=== PATIENT | female | born 1940 | race Caucasian/White ===

== ENCOUNTER → 2016-05-21 | Outpatient (CLI) | payer OTHER ==
[~2016-05-21] MED LIST: ADVIN10/60 INH; ALBUAER2 INH; ASPCH81; CARI350T28 PO; CLR10 PO; DILT-117 PO; DRV100 PO; DYZ PO; MULT-506 PO; [UNRECOGNIZED DRUG - OTHER] PO
[2016-05-21 14:38] LABS: ALT/SGPT 63 U/L (12-78); BLOOD UREA NITROGEN 17 mg/dl (7-18); BUN/CREATININE RATIO 15.1 (10-20); CALCIUM 8.7 mg/dl (8.5-10.1); CARBON DIOXIDE 27 mmol/L (21-32); CHLORIDE 107 mmol/L (98-107); GLUCOSE 147 mg/dl (70-99); SODIUM 144 mmol/L (136-145)
[2016-05-21 14:41] LABS: CHOLESTEROL 188 mg/dl (0-200); CHOLESTEROL/HDL RATIO 3.5; HDL CHOLESTEROL 54 mg/dl; LDL CHOLESTEROL CALCULATED 111 mg/dl; TRIGLYCERIDES 116 mg/dl (0-150); VERY LOW DENSITY LIPOPROT CALC 23 mg/dl
== END | disposition home or self-care (01) ==
LOC: C.LABMFLN 09:05
PROVIDERS: ATTEND Family Medicine
DX: Z13.220 Encounter for screening for lipoid disorders (principal); I10 Essential (primary) hypertension

== ENCOUNTER → 2016-12-24 | Outpatient (CLI) | payer OTHER | END | disposition home or self-care (01) | LOC: C.LABMFLN 10:47 | PROVIDERS: ATTEND Family Medicine | DX: L02.429 Furuncle of limb, unspecified (principal) ==

== ENCOUNTER → 2017-05-15 | Outpatient (CLI) | payer OTHER ==
[2017-05-15 18:22] LABS: ALT/SGPT 42 U/L (12-78); BLOOD UREA NITROGEN 17 mg/dl (7-18); CARBON DIOXIDE 33 mmol/L (21-32); CHOLESTEROL 163 mg/dl (0-200); CREATININE 1.02 mg/dl (0.60-1.20); GLUCOSE 117 mg/dl (70-99); SODIUM 140 mmol/L (136-145)
[2017-05-15 18:32] LABS: LDL CHOLESTEROL (DIRECT) 98 mg/dl
[2017-05-16 07:51] LABS: HEMOGLOBIN A1C 6.1 % (4.5-5.6)
== END | disposition home or self-care (01) ==
LOC: C.LABMFLN 11:59
PROVIDERS: ATTEND Family Medicine
DX: E11.9 Type 2 diabetes mellitus without complications (principal)

== ENCOUNTER → 2017-06-29 | Outpatient (CLI) | payer OTHER ==
[2017-06-29 22:45] LABS: INFLUENZA A PCR POS for Influ A (NEG); INFLUENZA B PCR Neg for Influ B (NEG)
== END | disposition home or self-care (01) ==
LOC: C.LABMFLN 10:22
PROVIDERS: ATTEND Physician Assistant
DX: R05 Cough (principal); R50.9 Fever, unspecified; J02.9 Acute pharyngitis, unspecified

== ENCOUNTER → 2018-01-04 | Outpatient (CLI) | payer OTHER ==
[2018-01-04 13:03] LABS: ALT/SGPT 43 U/L (12-78); BLOOD UREA NITROGEN 21 mg/dl (7-18); CALCIUM 8.8 mg/dl (8.5-10.1); CARBON DIOXIDE 31 mmol/L (21-32); CHOLESTEROL 167 mg/dl (0-200); CREATININE 1.18 mg/dl (0.60-1.20); GLUCOSE 123 mg/dl (70-99); LDL CHOLESTEROL (DIRECT) 107 mg/dl; SODIUM 140 mmol/L (136-145); URIC ACID 3.8 mg/dl (2.6-7.2)
[2018-01-04 13:17] LABS: HEMOGLOBIN A1C 6.1 % (4.5-5.6)
== END | disposition home or self-care (01) ==
LOC: C.LABMFLN 08:46
PROVIDERS: ATTEND Family Medicine
DX: M10.9 Gout, unspecified (principal); I10 Essential (primary) hypertension; E11.9 Type 2 diabetes mellitus without complications; E78.00 Pure hypercholesterolemia, unspecified

== ENCOUNTER 2020-04-04 15:41 | Inpatient (IN) ==
[2020-04-04] MEDS ORDERED: DEXAMETHASONE SOD INJ 10 MG/ML VIAL IV ONE (16:24)
[2020-04-04] MEDS ORDERED: SODIUM CHLORIDE 0.9% 1000ML 1,000 ML IV SCH (16:30)
[2020-04-04 17:17] LABS: Basophils # (auto) 0.01 K/uL (0-0.2); Basophils % (auto) 0.2 %; Eosinophils # (auto) 0.03 K/uL (0-0.5); Eosinophils % (auto) 0.5 %; Hematocrit (blood only) 42.1 % (37-47); Hemoglobin 13.7 g/dL (12.0-16.0); Immature Granulocytes # (auto) 0.03 K/uL (0.00-0.02); Immature Granulocytes % (auto) 0.5 %; Lymphocytes # (auto) 1.11 K/uL (1.2-3.4); Lymphocytes % (auto) 16.7 %; Mean Corpuscular Hemoglobin 31.9 pg (25-34); Mean Corpuscular Hgb Conc 32.5 g/dL (32-36); Mean Corpuscular Volume 97.9 fL (80-100); Mean Platelet Volume 10.6 fL (7.4-10.4); Monocytes # (auto) 0.68 K/uL (0.11-0.59); Monocytes % (auto) 10.2 %; Neutrophils # (auto) 4.78 K/uL (1.4-6.5); Neutrophils % (auto) 71.9 %; Platelet Count 180 K/uL (130-400); RDW Coefficient of Variation 13.4 % (11.5-14.5); RDW Standard Deviation 48.1 fL (36.4-46.3); White Blood Count 6.64 K/uL (4.8-10.8)
[2020-04-04 17:29] LABS: Partial Thromboplastin Ratio 1.1; Partial Thromboplastin Time 29.5 Seconds (21.0-31.0); Prothrombin Time 10.8 Seconds (9.0-12.0)
[2020-04-04 17:32] LABS: D Dimer 1050 ug/L FEU (0-500)
[2020-04-04 17:37] LABS: Alanine Aminotransferase 33 U/L (12-78); Albumin Level 2.9 gm/dl (3.4-5.0); Aspartate Aminotransferase 39 U/L (15-37); BUN Creatinine Ratio 16.8 (10-20); Blood Urea Nitrogen 17 mg/dl (7-18); Calcium 8.5 mg/dl (8.5-10.1); Carbon Dioxide 31 mmol/L (21-32); Chloride 104 mmol/L (98-107); Creatinine Clr Calc Pharmacy 54.8 ml/min; Est GFR (African American) 61.3; Est GFR (Non-African American) 52.9; Glucose 96 mg/dl (70-99); Magnesium 2.1 mg/dl (1.8-2.4); Potassium 3.7 mmol/L (3.5-5.1); Sodium 138 mmol/L (136-145)
[2020-04-04 17:42] LABS: Albumin Globulin Ratio 0.7 (0.9-2); Alkaline Phosphatase 68 U/L (45-117); Bilirubin,Total 0.9 mg/dl (0.2-1); C Reactive Protein 9.53 mg/dl (0-0.29); Ferritin 393.2 ng/ml (8-388); Globulin 4.2 gm/dl (2.5-4.0); Total Protein 7.1 gm/dl (6.4-8.2); Troponin I < 0.015 ng/ml (0-0.045)
--- NOTE | 2020-04-04 18:13 | Emergency Department Note ---
History of Present Illness General Chief complaint: Shortness of Breath/Dyspnea Stated complaint: COV + 03/27, HYPOXIA Source: patient and RN notes reviewed Mode of arrival: ambulatory Limitations: no limitations History of Present Illness Provider complaint: Covid positive, shortness of breath This patient is a 79-year-old female who presents to emergency department with complaints of shortness of breath, cough, noting that she was Covid positive on 03/27. Patient states she has not had any difficulty with significant fevers however she has had a dry and hacking cough. She has been nauseated but tolerating some chicken noodle soup over the last several days. She does not normally wear oxygen but admits that she does have a diagnosis of COPD. She is also diabetic. Patient does have a Ventolin inhaler that she has been using every 4 hours. She has been tolerating fluids but not as many as usual. She feels particularly short of breath with exertion. Patient believes she contracted Covid from a friend. Home Medications Medication Instructions Recorded Confirmed Type aspirin 81 mg tablet,delayed 81 mg PO DAILY 02/10/19 04/04/20 History release cetirizine 10 mg tablet 10 mg PO DAILY tab 02/10/19 04/04/20 History albuterol sulfate 90 mcg/actuation 2 puffs INH Q4H PRN #18 gm 08/03/19 04/04/20 Rx aerosol inhaler candesartan 8 mg tablet 8 mg PO DAILY #90 tab 11/08/19 04/04/20 Rx allopurinol 300 mg tablet 300 mg PO DAILY #90 tab 11/24/19 04/04/20 Rx montelukast 10 mg tablet 10 mg PO QPM #90 tab 11/24/19 04/04/20 Rx furosemide 20 mg tablet 20 mg PO QAM #90 tab 12/14/19 04/04/20 Rx metformin 500 mg tablet,extended 500 mg PO DAILY #90 tab 02/09/20 04/04/20 Rx release 24 hr diltiazem HCl 300 mg PO DAILY 04/04/20 04/04/20 History fluticasone propion-salmeterol 1 ea INHALATION BID 04/04/20 04/04/20 History [Wixela Inhub] potassium chloride 10 meq PO DAILY 04/04/20 04/04/20 History Allergies Allergy/AdvReac Type Severity Reaction Status Date / Time Penicillins Allergy Intermediate HIVES Verified 04/04/20 16:14 hydrochlorothiazide AdvReac Unknown Verified 04/04/20 16:14 lisinopril AdvReac Unknown Verified 04/04/20 16:14 Past Med/Surg History Medical History Anal fistula Asthma Benign essential hypertension Common migraine without aura Diabetes mellitus Disc degeneration, lumbar Hallux valgus with bunions Hypercholesterolemia Surgical History History of appendectomy History of cataract surgery History of cholecystectomy History of colonoscopy History of hysterectomy History of oophorectomy History of rectal surgery closure of anal fistula with rectal advancement flap History of shoulder surgery History of tubal ligation Family History Mother Cancer Myocardial infarction Congestive heart failure Father Persistent sinus bradycardia Septicemia Sick sinus syndrome Sister Hypothyroidism Social History Smoking Status: Never smoker Hx Alcohol Use: No Hx Substance Use: No Preferred Language: German Communication Ability: Effective Commercial Development Manager Required: No Beliefs That Will Affect Care: None Current Living Situation: Alone current occupational status: retired Feels Safe at Home: Yes caffeine: No Dental Care, Regularly: No Physical Activity Frequency: Does not Exercise Seatbelt Use: always Assistive Devices: Oxygen - Continuous Review of Systems See HPI for pertinent positives & negatives. and A total of 10 systems reviewed and were otherwise negative Physical Exam Vital Signs Vital Signs - 24 hr 04/04/20 15:44 04/04/20 15:58 04/04/20 16:12 Pulse Rate 80 72 Pulse Rate from SpO2 Sensor 71 Respiratory Rate 24 24 Respiratory Effort / Characteristics Non-Labored Spontaneous Short of Breath Respiratory Depth Normal Normal Respiratory Pattern Regular Blood Pressure 128/64 144/67 H Blood Pressure Mean 85 94 Pulse Oximetry 84 L 95 92 Oxygen Delivery Method Room Air Nasal Cannula Nasal Cannula Oxygen Flow Rate 2 2 Sepsis Recent Fever Within 48 Hours No Sepsis New/Unexplained Change in Mental Status N/A Sepsis Action Taken by Nursing No Action Required 04/04/20 16:27 04/04/20 16:30 04/04/20 16:32 Pulse Rate 75 71 Pulse Rate from SpO2 Sensor 74 71 Respiratory Rate 22 30 H Respiratory Effort / Characteristics Respiratory Depth Respiratory Pattern Blood Pressure Blood Pressure Mean Pulse Oximetry 92 91 94 Oxygen Delivery Method Nasal Cannula Nasal Cannula Nasal Cannula Oxygen Flow Rate 2 2 2 Sepsis Recent Fever Within 48 Hours Sepsis New/Unexplained Change in Mental Status Sepsis Action Taken by Nursing 04/04/20 17:00 04/04/20 17:03 Pulse Rate 72 71 Pulse Rate from SpO2 Sensor 72 71 Respiratory Rate 20 31 H Respiratory Effort / Characteristics Respiratory Depth Respiratory Pattern Blood Pressure 109/46 L Blood Pressure Mean 70 Pulse Oximetry 94 95 Oxygen Delivery Method Nasal Cannula Nasal Cannula Oxygen Flow Rate 2 2 Sepsis Recent Fever Within 48 Hours Sepsis New/Unexplained Change in Mental Status Sepsis Action Taken by Nursing Vital signs reviewed. General: Generally well-appearing 79-year-old female, in no significant distress. HEENT: No scleral icterus, PERRLA, neck supple. Atraumatic. Cardiovascular: Regular rate and rhythm, no extra sounds. On nasal cannula oxygen. Pulmonary: Coarse breath sounds bilaterally, normal work of breathing. On nasal cannula oxygen, dry cough Abdomen: Soft, obese, nontender, nondistended, positive bowel sounds. Musculoskeletal: Atraumatic, no peripheral edema. Neurologic: Patient awake alert and oriented x 3 Skin: Warm, dry, no rash Course Administered Medications Acetaminophen (Acetaminophen 325 Mg Tab) 650 mg PO Q4H PRN PRN Reason: Pain or Fever Stop: 05/05/20 00:25 Last Admin: 04/05/20 12:36 Dose: 650 mg Documented by: [id number] Allopurinol (Allopurinol 300 Mg Tab) 300 mg PO DAILY [facility] Stop: 05/05/20 08:59 Last Admin: 04/05/20 08:27 Dose: 300 mg Documented by: [id number] Aspirin (Aspirin 81 Mg Ectab) 81 mg PO DAILY [facility] Stop: 05/05/20 08:59 Last Admin: 04/05/20 08:27 Dose: 81 mg Documented by: [id number] Cetirizine HCl (Cetirizine Hcl 10 Mg Tablet) 10 mg PO DAILY [facility] Stop: 05/05/20 08:59 Last Admin: 04/05/20 08:27 Dose: 10 mg Documented by: [id number] Diltiazem HCl (Diltiazem Hcl 300 Mg Capcr) 300 mg PO DAILY [facility] Stop: 05/05/20 08:59 Last Admin: 04/05/20 08:27 Dose: 300 mg Documented by: [id number] Enoxaparin Sodium (Enoxaparin Inj 60 Mg/0.6 Ml Syr) 60 mg SQ Q24H [facility] Stop: 05/05/20 08:59 Last Admin: 04/05/20 08:28 Dose: 60 mg Documented by: [id number] Fluticasone/Vilanterol (Fluticasone/Vilanterol 200/25mcg 14 Puffs/Inhaler) 1 puffs INH DAILY [facility] Stop: 05/05/20 08:59 Last Admin: 04/05/20 08:26 Dose: 1 puffs Documented by: [id number] Guaifenesin (Guaifenesin 600 Mg Tabcr) 600 mg PO Q12 [facility] Stop: 05/05/20 00:25 Last Admin: 04/05/20 20:00 Dose: 600 mg Documented by: [id number] Admin: 04/05/20 08:28 Dose: 600 mg Documented by: [id number] Admin: 04/05/20 01:26 Dose: 600 mg Documented by: [id number] Dexamethasone 6 mg/ Syringe 1.5 mls @ 1 mls/min IV Q12H [facility] Stop: 05/05/20 03:59 Last Admin: 04/05/20 16:02 Dose: 1 mls/min Documented by: [id number] Admin: 04/05/20 04:35 Dose: 1 mls/min Documented by: [id number] Ceftriaxone Sodium 2,000 mg/ (Dextrose) 70 mls @ 100 mls/hr IV Q24H [facility]; Protocol Stop: 04/12/20 00:59 Last Infusion: 04/05/20 02:26 Dose: 0 mls/hr Documented by: [id number] Admin: 04/05/20 01:31 Dose: 100 mls/hr Documented by: [id number] Azithromycin 500 mg/ Dextrose 255 mls @ 125 mls/hr IV Q24H [facility] Stop: 04/12/20 00:59 Last Infusion: 04/05/20 04:35 Dose: 0 mls/hr Documented by: [id number] Admin: 04/05/20 02:26 Dose: 125 mls/hr Documented by: [id number] Insulin Aspart (Insulin Aspart 100 Units/Ml 3 Ml Pen) 0 units SC ACHS [facility] Stop: 05/05/20 00:25 Last Admin: 04/05/20 20:10 Dose: 2 units Documented by: [id number] Cosigned by: [id number] Admin: 04/05/20 17:41 Dose: 4 units Documented by: [id number] Cosigned by: [id number] Admin: 04/05/20 12:26 Dose: 6 units Documented by: [id number] Cosigned by: [id number] Admin: 04/05/20 10:02 Dose: 5 units Documented by: [id number] Cosigned by: [id number] Admin: 04/05/20 01:54 Dose: 4 units Documented by: [id number] Cosigned by: [id number] Montelukast Sodium (Montelukast Sodium 10 Mg Tablet) 10 mg PO QPM [facility] Stop: 05/05/20 00:25 Last Admin: 04/05/20 20:01 Dose: 10 mg Documented by: [id number] Admin: 04/05/20 01:28 Dose: 10 mg Documented by: [id number] Discontinued Medications Dexamethasone (Dexamethasone Sod Inj 10 Mg/Ml Vial) 10 mg IV NOW ONE Stop: 04/04/20 16:25 Last Admin: 04/04/20 17:02 Dose: 10 mg Documented by: [id number] Sodium Chloride (Nss 1000ml) 1,000 mls @ 999 mls/hr IV .Q1H1M OSK[facility] Stop: 04/04/20 17:30 Last Infusion: 04/04/20 18:03 Dose: 0 mls/hr Documented by: [id number] Admin: 04/04/20 17:02 Dose: 999 mls/hr Documented by: [id number] Miscellaneous (Candesartan~Order Awaiting Action) 1 ea N/A QS OSK[facility] Stop: 05/05/20 07:59 Last Admin: 04/05/20 08:25 Dose: Not Given Documented by: [id number] Medical Decision Making Differential Diagnosis Reactive airway disease, Covid, pneumonia, pneumothorax, COPD, CHF, infections, cardiac ischemia, pulmonary embolism, musculoskeletal, gastrointestinal, as well as other pathologies. Medical Records Attestation: I reviewed the patient's medical records. Home Medications Current Medication List: was personally reviewed by me Laboratory Data Attestation: I reviewed the patient's lab results. Result diagrams: 04/04/20 16:59 04/04/20 16:59 Lab Results 04/04/20 04/04/20 04/04/20 Range/Units 16:15 16:15 16:59 WBC (4.8-10.8) K/uL RBC (4.2-5.4) M/uL Hgb (12.0-16.0) g/dL Hct (37-47) % MCV (80-100) fL MCH (25-34) pg MCHC (32-36) g/dL RDW Std Deviation (36.4-46.3) fL RDW Coeff of Gonzalez (11.5-14.5) % Plt Count (130-400) K/uL MPV (7.4-10.4) fL Immature Gran % (Auto) % Neut % (Auto) % Lymph % (Auto) % Mcleod % (Auto) % Eos % (Auto) % Baso % (Auto) % Neut # (Auto) (1.4-6.5) K/uL Lymph # (Auto) (1.2-3.4) K/uL Mcleod # (Auto) (0.11-0.59) K/uL Eos # (Auto) (0-0.5) K/uL Baso # (Auto) (0-0.2) K/uL Immature Gran # (Auto) (0.00-0.02) K/uL ESR (0-21) mm/hr PT (9.0-12.0) Seconds INR (0.9-1.1) APTT (21.0-31.0) Seconds PTT Ratio D-Dimer (0-500) ug/L FEU Sodium (136-145) mmol/L Potassium (3.5-5.1) mmol/L Chloride (98-107) mmol/L Carbon Dioxide (21-32) mmol/L Anion Gap (3-11) BUN (7-18) mg/dl Creatinine (0.6-1.2) mg/dl Est Cr Clr Drug Dosing ml/min Est GFR ( Amer) Est GFR (Non-Af Amer) BUN/Creatinine Ratio (10-20) Glucose (70-99) mg/dl Calcium (8.5-10.1) mg/dl Magnesium (1.8-2.4) mg/dl Ferritin (8-388) ng/ml Total Bilirubin (0.2-1) mg/dl AST (15-37) U/L ALT (12-78) U/L Alkaline Phosphatase (45-117) U/L Lactate Dehydrogenase (84-246) U/L Troponin I (0-0.045) ng/ml C-Reactive Protein (0-0.29) mg/dl Total Protein (6.4-8.2) gm/dl Albumin (3.4-5.0) gm/dl Globulin (2.5-4.0) gm/dl Albumin/Globulin Ratio (0.9-2) COVID-19 Eval Order Covid19 [facility]Now [facility] SARS-CoV-2, RNA, NAAT POSITIVE A* (NEGATIVE) SARS-CoV-2 Ag (Rapid) (Negative) Blood Type A Positive Antibody Screen NEGATIVE 04/04/20 04/04/20 04/04/20 Range/Units 16:59 16:59 16:59 WBC 6.64 (4.8-10.8) K/uL RBC 4.30 (4.2-5.4) M/uL Hgb 13.7 (12.0-16.0) g/dL Hct 42.1 (37-47) % MCV 97.9 (80-100) fL MCH 31.9 (25-34) pg MCHC 32.5 (32-36) g/dL RDW Std Deviation 48.1 H (36.4-46.3) fL RDW Coeff of Gonzalez 13.4 (11.5-14.5) % Plt Count 180 (130-400) K/uL MPV 10.6 H (7.4-10.4) fL Immature Gran % (Auto) 0.5 % Neut % (Auto) 71.9 % Lymph % (Auto) 16.7 % Mcleod % (Auto) 10.2 % Eos % (Auto) 0.5 % Baso % (Auto) 0.2 % Neut # (Auto) 4.78 (1.4-6.5) K/uL Lymph # (Auto) 1.11 L (1.2-3.4) K/uL Mcleod # (Auto) 0.68 H (0.11-0.59) K/uL Eos # (Auto) 0.03 (0-0.5) K/uL Baso # (Auto) 0.01 (0-0.2) K/uL Immature Gran # (Auto) 0.03 H (0.00-0.02) K/uL ESR 43 H (0-21) mm/hr PT 10.8 (9.0-12.0) Seconds INR 1.0 (0.9-1.1) APTT 29.5 (21.0-31.0) Seconds PTT Ratio 1.1 D-Dimer 1050 H* (0-500) ug/L FEU Sodium (136-145) mmol/L Potassium (3.5-5.1) mmol/L Chloride (98-107) mmol/L Carbon Dioxide (21-32) mmol/L Anion Gap (3-11) BUN (7-18) mg/dl Creatinine (0.6-1.2) mg/dl Est Cr Clr Drug Dosing ml/min Est GFR ( Amer) Est GFR (Non-Af Amer) BUN/Creatinine Ratio (10-20) Glucose (70-99) mg/dl Calcium (8.5-10.1) mg/dl Magnesium (1.8-2.4) mg/dl Ferritin (8-388) ng/ml Total Bilirubin (0.2-1) mg/dl AST (15-37) U/L ALT (12-78) U/L Alkaline Phosphatase (45-117) U/L Lactate Dehydrogenase (84-246) U/L Troponin I (0-0.045) ng/ml C-Reactive Protein (0-0.29) mg/dl Total Protein (6.4-8.2) gm/dl Albumin (3.4-5.0) gm/dl Globulin (2.5-4.0) gm/dl Albumin/Globulin Ratio (0.9-2) COVID-19 Eval Order SARS-CoV-2, RNA, NAAT (NEGATIVE) SARS-CoV-2 Ag (Rapid) (Negative) Blood Type Antibody Screen 04/04/20 04/04/20 04/04/20 Range/Units 16:59 16:59 17:11 WBC (4.8-10.8) K/uL RBC (4.2-5.4) M/uL Hgb (12.0-16.0) g/dL Hct (37-47) % MCV (80-100) fL MCH (25-34) pg MCHC (32-36) g/dL RDW Std Deviation (36.4-46.3) fL RDW Coeff of Gonzalez (11.5-14.5) % Plt Count (130-400) K/uL MPV (7.4-10.4) fL Immature Gran % (Auto) % Neut % (Auto) % Lymph % (Auto) % Mcleod % (Auto) % Eos % (Auto) % Baso % (Auto) % Neut # (Auto) (1.4-6.5) K/uL Lymph # (Auto) (1.2-3.4) K/uL Mcleod # (Auto) (0.11-0.59) K/uL Eos # (Auto) (0-0.5) K/uL Baso # (Auto) (0-0.2) K/uL Immature Gran # (Auto) (0.00-0.02) K/uL ESR (0-21) mm/hr PT (9.0-12.0) Seconds INR (0.9-1.1) APTT (21.0-31.0) Seconds PTT Ratio D-Dimer (0-500) ug/L FEU Sodium 138 (136-145) mmol/L Potassium 3.7 (3.5-5.1) mmol/L Chloride 104 (98-107) mmol/L Carbon Dioxide 31 (21-32) mmol/L Anion Gap 3.0 (3-11) BUN 17 (7-18) mg/dl Creatinine 1.01 (0.6-1.2) mg/dl Est Cr Clr Drug Dosing 54.8 ml/min Est GFR ( Amer) 61.3 Est GFR (Non-Af Amer) 52.9 BUN/Creatinine Ratio 16.8 (10-20) Glucose 96 (70-99) mg/dl Calcium 8.5 (8.5-10.1) mg/dl Magnesium 2.1 (1.8-2.4) mg/dl Ferritin 393.2 H (8-388) ng/ml Total Bilirubin 0.9 (0.2-1) mg/dl AST 39 H (15-37) U/L ALT 33 (12-78) U/L Alkaline Phosphatase 68 (45-117) U/L Lactate Dehydrogenase 321 H (84-246) U/L Troponin I < 0.015 (0-0.045) ng/ml C-Reactive Protein 9.53 H (0-0.29) mg/dl Total Protein 7.1 (6.4-8.2) gm/dl Albumin 2.9 L (3.4-5.0) gm/dl Globulin 4.2 H (2.5-4.0) gm/dl Albumin/Globulin Ratio 0.7 L (0.9-2) COVID-19 Eval Order SARS-CoV-2, RNA, NAAT (NEGATIVE) SARS-CoV-2 Ag (Rapid) Negative (Negative) Blood Type Antibody Screen Imaging Data Radiologist's Impression: SINGLE VIEW CHEST CLINICAL HISTORY: Dyspnea. FINDINGS: An AP, portable, upright chest radiograph is obtained. No prior studies are available for comparison at the time of dictation. The heart is enlarged noting atherosclerotic calcification of the thoracic aorta. There is pulmonary basilar congestion. Hazy airspace opacities are seen bilaterally. There is elevation of the right hemidiaphragm with associated atelectasis at the right lung base. Trace pleural effusions are suspected. No pneumothorax is seen. The skeletal structures are osteopenic. The bony thorax is grossly intact. A right shoulder arthroplasty is in place. IMPRESSION: 1. Cardiomegaly with evidence of congestive failure. 2. Hazy bilateral interstitial opacities likely represent pulmonary edema. Nataliia elate clinically for evidence of a superimposed infectious/inflammatory pneumonitis. 3. Suspect trace pleural effusions. ACT 112: Negative or not required by law. Electronically signed by: Isaisa Hobson M.D. 04/04/2020 6:49 PM Dictated: 04/04/201847Transcribed: 04/04/201847 ECG Data Attestation: I personally reviewed and interpreted this ECG as follows: Indication: + SOB/dyspnea Rate (beats per minute): 74 Rhythm: + normal sinus and + other (Poor quality baseline for interpretation) ECG Intervals/blocks: + Prolonged QT ECG ST segments: + Nonspecific ST abnormalities and + repolarization abnormalities (T wave flattening anteriorly) ECG Findings: no PACs and no PVCs Blood Pressure Blood Pressure Findings: Low blood pressure Blood Pressure Disposition: further management by hospitalist ERICKSON Mead This patient was evaluated and appeared to be in no significant distress. IV access was obtained and laboratory work was drawn. An order for cardiac monitoring was placed and the patient is noted to be in a normal sinus rhythm at 72 bpm. The patient was noted to be hypoxic at triage and was requiring supplemental oxygen at 2 L nasal cannula. She was given 6 mg of IV dexamethasone. Chest x-ray reveals hazy bilateral interstitial infiltrates which is likely more consistent with the patient's diagnosis of Covid as opposed to pulmonary edema. Patient's D-dimer is elevated, sed rate and CRP are elevated. Patient's case was discussed with the hospitalist service who will evaluate the patient for admission and further management. Patient is aware of the plan and agrees. Impression & Plan Hypoxia, Pneumonia due to COVID-19 virus Discharge Plan Visit Data Chief Complaint: Shortness of Breath/Dyspnea Stated Complaint: COV + 03/27, HYPOXIA ED Provider: Re Anderson Discharge Problem: Hypoxia, Pneumonia due to COVID-19 virus Patient Disposition: Admitted As Inpatient Discharge Instructions Interventions: ED Discharge Assessment Last Done: 04/04/20 23:13
--- NOTE | 2020-04-04 18:42 | History & Physical Report ---
Date of Service April 04, 2020 Assessment & Plan (1) Pneumonia due to COVID-19 virus: Pneumonia due to COVID-19 virus/likely associated secondary bacterial superinfection/hypoxia/history of asthma- Admit to monitored bed Decadron 6 mg IV every 12 hours Ceftriaxone 2 g IV daily. Azithromycin 500 mg IV daily Ventolin HFA 2 puffs 4 times daily, and every 2 hours as needed Guaifenesin extended release 600 mg p.o. twice daily Nasal cannula oxygen, titrate to keep pulse ox 94 to 95% Present on Admission?: Yes (2) Hypoxia: See above Present on Admission?: Yes (3) Asthma: See above Present on Admission?: Yes (4) Benign essential hypertension: Continue aspirin, candesartan, diltiazem. Hold furosemide and potassium chloride Present on Admission?: Yes (5) Diabetes mellitus: Hold metformin. Placed in Accu-Cheks before meals and at bedtime with NovoLog coverage per scale. Follow glucose closely while on Decadron Present on Admission?: Yes History of Present Illness Chief Complaint: The patient presents to the emergency department with a diagnosis of COVID-19 on 03/27, with progressive shortness of breath, cough and dyspnea on exertion. Primary Care Provider: Filiberto Joseph MD The patient is a 79-year-old female with a past medical history of asthma, benign essential hypertension, common migraine without aura, diabetes mellitus, lumbar disc degeneration, hallux valgus with bunions and hypercholesterolemia. She was diagnosed with COVID-19 on 03/27, now was confirmed in the ED tonight. She reports that her symptoms had been improving until this morning, when she awoke with worsening cough and shortness of breath. Allergies Allergy/AdvReac Type Severity Reaction Status Date / Time Penicillins Allergy Intermediate HIVES Verified 04/04/20 16:14 hydrochlorothiazide AdvReac Unknown Verified 04/04/20 16:14 lisinopril AdvReac Unknown Verified 04/04/20 16:14 Home Medications Medication Instructions Recorded Confirmed Type aspirin 81 mg tablet,delayed 81 mg PO DAILY 02/10/19 04/04/20 History release cetirizine 10 mg tablet 10 mg PO DAILY tab 02/10/19 04/04/20 History albuterol sulfate 90 mcg/actuation 2 puffs INH Q4H PRN #18 gm 08/03/19 04/04/20 Rx aerosol inhaler candesartan 8 mg tablet 8 mg PO DAILY #90 tab 11/08/19 04/04/20 Rx allopurinol 300 mg tablet 300 mg PO DAILY #90 tab 11/24/19 04/04/20 Rx montelukast 10 mg tablet 10 mg PO QPM #90 tab 11/24/19 04/04/20 Rx furosemide 20 mg tablet 20 mg PO QAM #90 tab 12/14/19 04/04/20 Rx metformin 500 mg tablet,extended 500 mg PO DAILY #90 tab 02/09/20 04/04/20 Rx release 24 hr diltiazem HCl 300 mg PO DAILY 04/04/20 04/04/20 History fluticasone propion-salmeterol 1 ea INHALATION BID 04/04/20 04/04/20 History [Wixela Inhub] potassium chloride 10 meq PO DAILY 04/04/20 04/04/20 History Past Med/Surg History Medical History Anal fistula Asthma Benign essential hypertension Common migraine without aura Diabetes mellitus Disc degeneration, lumbar Hallux valgus with bunions Hypercholesterolemia Surgical History History of appendectomy History of cataract surgery History of cholecystectomy History of colonoscopy History of hysterectomy History of oophorectomy History of rectal surgery closure of anal fistula with rectal advancement flap History of shoulder surgery History of tubal ligation Family History Mother Cancer Myocardial infarction Congestive heart failure Father Persistent sinus bradycardia Septicemia Sick sinus syndrome Sister Hypothyroidism Social History Smoking Status: Never smoker Hx Alcohol Use: No Hx Substance Use: No Current Living Situation: Alone current occupational status: retired Feels Safe at Home: Yes caffeine: No Dental Care, Regularly: No Physical Activity Frequency: Does not Exercise Seatbelt Use: always Review of Systems Review of Systems: The patient denies chest pain, palpitations, lower extremity swelling, sore throat, fevers, chills, sweats, vomiting, diarrhea , constipation, abdominal pain, pelvic pain, blood in urine or stool, dysuria, urinary frequency or urgency, lightheadedness, dizziness, headache, loss of consciousness, rash, abnormal bruising or bleeding, focal or generalized weakness, numbness or tingling in arms or legs, or night sweats. The review of systems is otherwise negative other than for that already noted ab ove, and at least 10 systems have been reviewed. Physical Exam Physical Exam: The patient is awake, alert and oriented 3, normocephalic and atraumatic, lying in bed and in no acute distress. HEENT--PERRL, EOMI, mucous membranes and oropharynx dry. Neck--supple. No JVD. No bruits. Thyroid normal, trachea midline, no adenopathy. Heart--normal S1 and S2. No murmurs, rubs or gallops. Lungs--coarse breath sounds with wheezes bilaterally. No respiratory distress, no accessory muscle use. Abdomen--normal bowel sounds and soft. Nontender. Nondistended. Morbidly obese Extremities--no cyanosis or clubbing. No edema. Dermatologic--normal skin turgor, normal color, no abnormal lymph nodes, no rash. Neurologic--cranial nerves II through XII grossly intact. Rheumatologic--normal range of motion. Psychiatric--normal affect. Results & Data Results & Data ([facility]) Vital Signs (Past 12 Hours) Vital Signs Pulse Resp BP Pulse Ox 04/04/20 17:03 71 31 H 109/46 L 95 04/04/20 17:00 72 20 94 04/04/20 16:32 94 04/04/20 16:30 71 30 H 91 04/04/20 16:27 75 22 92 04/04/20 16:12 72 24 144/67 H 92 04/04/20 15:58 95 04/04/20 15:44 80 24 128/64 84 L Laboratory Results Laboratory Results WBC 6.64 K/uL (4.8-10.8) 04/04/20 16:59 RBC 4.30 M/uL (4.2-5.4) 04/04/20 16:59 Hgb 13.7 g/dL (12.0-16.0) 04/04/20 16:59 Hct 42.1 % (37-47) 04/04/20 16:59 MCV 97.9 fL (80-100) 04/04/20 16:59 MCH 31.9 pg (25-34) 04/04/20 16:59 MCHC 32.5 g/dL (32-36) 04/04/20 16:59 RDW Std Deviation 48.1 fL (36.4-46.3) H 04/04/20 16:59 RDW Coeff of Gonzalez 13.4 % (11.5-14.5) 04/04/20 16:59 Plt Count 180 K/uL (130-400) 04/04/20 16:59 MPV 10.6 fL (7.4-10.4) H 04/04/20 16:59 Immature Gran % (Auto) 0.5 % 04/04/20 16:59 Neut % (Auto) 71.9 % 04/04/20 16:59 Lymph % (Auto) 16.7 % 04/04/20 16:59 [place] % (Auto) 10.2 % 04/04/20 16:59 Eos % (Auto) 0.5 % 04/04/20 16:59 Baso % (Auto) 0.2 % 04/04/20 16:59 Neut # (Auto) 4.78 K/uL (1.4-6.5) 04/04/20 16:59 Lymph # (Auto) 1.11 K/uL (1.2-3.4) L 04/04/20 16:59 [place] # (Auto) 0.68 K/uL (0.11-0.59) H 04/04/20 16:59 Eos # (Auto) 0.03 K/uL (0-0.5) 04/04/20 16:59 Baso # (Auto) 0.01 K/uL (0-0.2) 04/04/20 16:59 Immature Gran # (Auto) 0.03 K/uL (0.00-0.02) H 04/04/20 16:59 ESR 43 mm/hr (0-21) H 04/04/20 16:59 PT 10.8 Seconds (9.0-12.0) 04/04/20 16:59 INR 1.0 (0.9-1.1) 04/04/20 16:59 APTT 29.5 Seconds (21.0-31.0) 04/04/20 16:59 PTT Ratio 1.1 04/04/20 16:59 D-Dimer 1050 ug/L FEU (0-500) H* 04/04/20 16:59 Sodium 138 mmol/L (136-145) 04/04/20 16:59 Potassium 3.7 mmol/L (3.5-5.1) 04/04/20 16:59 Chloride 104 mmol/L (98-107) 04/04/20 16:59 Carbon Dioxide 31 mmol/L (21-32) 04/04/20 16:59 Anion Gap 3.0 (3-11) 04/04/20 16:59 BUN 17 mg/dl (7-18) 04/04/20 16:59 Creatinine 1.01 mg/dl (0.6-1.2) 04/04/20 16:59 Est Cr Clr Drug Dosing 54.8 ml/min 04/04/20 16:59 Est GFR ( Amer) 61.3 04/04/20 16:59 Est GFR (Non-Af Amer) 52.9 04/04/20 16:59 BUN/Creatinine Ratio 16.8 (-20) 04/04/20 16:59 Glucose 96 mg/dl (70-99) 04/04/20 16:59 Calcium 8.5 mg/dl (8.5-10.1) 04/04/20 16:59 Magnesium 2.1 mg/dl (1.8-2.4) 04/04/20 16:59 Ferritin 393.2 ng/ml (8-388) H 04/04/20 16:59 Total Bilirubin 0.9 mg/dl (0.2-1) 04/04/20 16:59 AST 39 U/L (15-37) H 04/04/20 16:59 ALT 33 U/L (12-78) 04/04/20 16:59 Alkaline Phosphatase 68 U/L (45-117) 04/04/20 16:59 Lactate Dehydrogenase 321 U/L (84-246) H 04/04/20 16:59 Troponin I < 0.015 ng/ml (0-0.045) 04/04/20 16:59 C-Reactive Protein 9.53 mg/dl (0-0.29) H 04/04/20 16:59 Total Protein 7.1 gm/dl (6.4-8.2) 04/04/20 16:59 Albumin 2.9 gm/dl (3.4-5.0) L 04/04/20 16:59 Globulin 4.2 gm/dl (2.5-4.0) H 04/04/20 16:59 Albumin/Globulin Ratio 0.7 (0.9-2) L 04/04/20 16:59 Urine Color Yellow 04/04/20 19:02 Urine Appearance Clear (Clear) 04/04/20 19:02 Urine pH 6.0 (4.5-7.5) 04/04/20 19:02 Ur Specific [place] 1.008 (1.000-1.030) 04/04/20 19:02 Urine Protein Negative (Negative) 04/04/20 19:02 Urine Glucose (UA) Negative (Negative) 04/04/20 19:02 Urine Ketones 1+ (Negative) H 04/04/20 19:02 Urine Blood Trace (Negative) H 04/04/20 19:02 Urine Nitrite Negative (Negative) 04/04/20 19:02 Urine Bilirubin Negative (Negative) 04/04/20 19:02 Urine Urobilinogen Negative (Negative) 04/04/20 19:02 Ur Leukocyte Esterase 1+ (Negative) H 04/04/20 19:02 Urine RBC 0-4 /hpf (0-4) 04/04/20 19:02 Urine WBC 0-5 /hpf (0-5) 04/04/20 19:02 Ur Epithelial Cells 20-30 /lpf (0-5) H 04/04/20 19:02 Urine Bacteria Negative (Negative) 04/04/20 19:02 COVID-19 Eval Order Cov[facility] 04/04/20 16:15 SARS-CoV-2, RNA, NAAT POSITIVE (NEGATIVE) A* 04/04/20 16:15 SARS-CoV-2 Ag (Rapid) Negative (Negative) 04/04/20 17:11 Blood Type A Positive 04/04/20 16:59 Antibody Screen NEGATIVE 04/04/20 16:59 Diagnostic Findings [facility], [phone] XRay Report Patient: KULWINDER LUNA Date: 04/04/20MR#: [id number]: [id number] SR 655Acct ID:[id number]: [facility] Zip: [place], [place] [address]Axq: 79Location: EDSex: FRoom/Bed:Att Phy:Diagnosis: COV + 03/27, HYPOXIAPri Phy: Filiberto Joseph, MDService Date: 04/04/20Fam Phy:Interpreting Phy: Isaias Hobson MDAdmit Phy: Ordering Phy: Re Anderson M.D. cc: ~ SINGLE VIEW CHEST CLINICAL HISTORY: Dyspnea. FINDINGS: An AP, portable, upright chest radiograph is obtained. No prior studies are available for comparison at the time of dictation. The heart is enlarged noting atherosclerotic calcification of the thoracic aorta. There is pulmonary basilar congestion. Hazy airspace opacities are seen bilaterally. There is elevation of the right hemidiaphragm with associated atelectasis at the right lung base. Trace pleural effusions are suspected. No pneumothorax is seen. The skeletal structures are osteopenic. The bony thorax is grossly intact. A right shoulder arthroplasty is in place. IMPRESSION: 1. Cardiomegaly with evidence of congestive failure. 2. Hazy bilateral interstitial opacities likely represent pulmonary edema. C orrelate clinically for evidence of a superimposed infectious/inflammatory pneumonitis. 3. Suspect trace pleural effusions. ACT 112: Negative or not required by law. Electronically signed by: Isaias Hobson M.D. 04/04/2020 6:49 PM Dictated: 04/04/201847Transcribed: 04/04/201847 Code Status & VTE Plan Code Status Full code VTE Prophylaxis Plan VTE Prophylaxis will be ordered: Yes PG Care Time/CCT Total # of Minutes Spent Total Time Spent with Patient: Total time spent is greater than 50% in coordination of care (as documented) at patient's floor/unit and/or counseling patient: Coding Level of Care Code 74280 Initial Inpt Care Lvl 3 Diagnoses Pneumonia due to COVID-19 virus U07.1; J12.89 Hypoxia R09.02 Asthma J45.909 Benign essential hypertension I10 Diabetes mellitus E11.9
--- NOTE | 2020-04-04 18:50 | XRay Report ---
SINGLE VIEW CHEST CLINICAL HISTORY: Dyspnea. FINDINGS: An AP, portable, upright chest radiograph is obtained. No prior studies are available for c omparison at the time of dictation. The heart is enlarged noting atherosclerotic calcification of th e thoracic aorta. There is pulmonary basilar congestion. Hazy airspace opacities are seen bilaterally . There is elevation of the right hemidiaphragm with associated atelectasis at the right lung base. T race pleural effusions are suspected. No pneumothorax is seen. The skeletal structures are osteopenic . The bony thorax is grossly intact. A right shoulder arthroplasty is in place. IMPRESSION: 1. Cardiomegaly with evidence of congestive failure. 2. Hazy bilateral interstitial opacities likely represent pulmonary edema. Correlate clinically for e vidence of a superimposed infectious/inflammatory pneumonitis. 3. Suspect trace pleural effusions. ACT 112: Negative or not required by law. Electronically signed by: Isaias Hobson M.D. 04/04/2020 6:49 PM
[2020-04-04 19:16] LABS: Appearance Urine Clear (Clear); Bilirubin Urine Negative (Negative); Blood Urine Trace (Negative); Color Urine Yellow; Glucose Urine UA Negative (Negative); Ketones Urine 1+ (Negative); Leukocyte Esterase Urine 1+ (Negative); Nitrite Urine Negative (Negative); Protein Urine Negative (Negative); Specific Gravity Urine 1.008 (1.000-1.030); Urobilinogen Urine Negative (Negative)
[2020-04-04 19:31] LABS: Epithelial Cell Urine 20-30 /lpf (0-5); RBC Urine 0-4 /hpf (0-4); WBC Urine 0-5 /hpf (0-5)
[2020-04-04 19:32] LABS: Bacteria Urine Negative (Negative)
[2020-04-05] MEDS ORDERED: ACETAMINOPHEN 325 MG TAB PO PRN (00:26)
[2020-04-05] MEDS ORDERED: GLUCOSE 10 TABS/TUBE PO PRN (00:26)
[2020-04-05] MEDS ORDERED: ALBUTEROL HFA 8 GM INHALER INH PRN (00:26)
[2020-04-05] MEDS ORDERED: MAGNESIUM HYDROXIDE SUSP 30 ML UDC PO PRN (00:26)
[2020-04-05] MEDS ORDERED: GLUCOSE 40% GEL 15 GM TUBE PO PRN (00:26)
[2020-04-05] MEDS ORDERED: GLUCAGON FOR INJ 1 MG VIAL SQ PRN (00:26)
[2020-04-05] MEDS ORDERED: CARBOHYDRATES FOR HYPOGLYCEMIA PO PRN (00:26)
[2020-04-05] MEDS ORDERED: ONDANSETRON INJ 2 MG/ML 2 ML VIAL IV PRN (00:26)
[2020-04-05] MEDS ORDERED: ALUMINUM/MAGNESIUM SUSP 30 ML UDC PO PRN (00:26)
[2020-04-05] MEDS ORDERED: DEXTROSE 50% 50 ML SYRINGE IV PRN (00:26)
[2020-04-05] MEDS: guaiFENesin 600 MG TABCR PO SCH ×3 (01:26→20:00)
[2020-04-05] MEDS: MONTELUKAST SODIUM 10 MG TABLET PO SCH ×2 (01:28→20:01)
[2020-04-05] MEDS: cefTRIAXone SODIUM 2,000 MG in DEXTROSE 5% 50 ML IV SCH ×2 (01:31→23:41)
[2020-04-05] MEDS: INSULIN ASPART 100 UNITS/ML 3 ML PEN SC SCH ×5 (01:54→20:10)
[2020-04-05] MEDS: AZITHROMYCIN 500 MG in DEXTROSE 5% 250 ML IV SCH (02:26)
[2020-04-05] MEDS: dexAMETHasone 6 MG in SYRINGE 0 ML IV SCH ×2 (04:35→16:02)
[2020-04-05] MEDS: FLUTICASONE/VILANTEROL 200/25MCG 14 PUFFS/INHALER INH SCH (08:26)
[2020-04-05] MEDS: allopurinoL 300 MG TAB PO SCH (08:27)
[2020-04-05] MEDS: dilTIAZem HCL 300 MG CAPCR PO SCH (08:27)
[2020-04-05] MEDS: ASPIRIN 81 MG ECTAB PO SCH (08:27)
[2020-04-05] MEDS: CETIRIZINE HCL 10 MG TABLET PO SCH (08:27)
[2020-04-05] MEDS: ENOXAPARIN INJ 60 MG/0.6 ML SYR SQ SCH (08:28)
[2020-04-05 09:44] LABS: Estimated Average Glucose 134 mg/dl; Hemoglobin A1C 6.3 % (4.5-5.6)
--- NOTE | 2020-04-05 15:13 | Electrocardiogram Report ---
Test Reason : Blood Pressure : / mmHG Vent. Rate : 074 BPM Atrial Rate : 074 BPM P-R Int : 190 ms QRS Dur : 090 ms QT Int : 440 ms P-R-T Axes : 041 030 068 degrees QTc Int : 489 ms Sinus rhythm with Premature atrial complexes with Aberrant conduction Prolonged QT Abnormal ECG When compared with ECG of 29-MAR-2007 15:11, Aberrant conduction is now Present QT has lengthened Confirmed by Agapito Yates ([id number]) on 04/05/2020 3:13:14 PM Referred By: REFERRED SELF Confirmed By:Agapito Yates
--- NOTE | 2020-04-05 15:21 | Electrocardiogram Report ---
Test Reason : Blood Pressure : / mmHG Vent. Rate : 072 BPM Atrial Rate : 072 BPM P-R Int : 186 ms QRS Dur : 088 ms QT Int : 404 ms P-R-T Axes : 044 018 032 degrees QTc Int : 442 ms Normal sinus rhythm Nonspecific T wave abnormality When compared with ECG of 04-APR-2020 16:50, Aberrant conduction is no longer Present QT has shortened Confirmed by Agapito Yates ([id number]) on 04/05/2020 3:20:55 PM Referred By: REFERRED SELF Confirmed By:Agapito Yates
--- NOTE | 2020-04-05 22:54 | Hospitalist Progress Note ---
Date of Service April 05, 2020 Assessment & Plan (1) Pneumonia due to COVID-19 virus: Pneumonia due to COVID-19 virus/likely associated secondary bacterial superinfection/hypoxia/history of asthma- Admit to monitored bed Decadron 6 mg IV every 12 hours Ceftriaxone 2 g IV daily. Azithromycin 500 mg IV daily Ventolin HFA 2 puffs 4 times daily, and every 2 hours as needed Guaifenesin extended release 600 mg p.o. twice daily Nasal cannula oxygen (2) Hypoxia: See above (3) Asthma: See above (4) Benign essential hypertension: Continue aspirin, candesartan, diltiazem. Hold furosemide and potassium chloride (5) Diabetes mellitus: Hold metformin. Placed in Accu-Cheks before meals and at bedtime with NovoLog coverage per scale. Follow glucose closely while on Decadron Admission and Anticipated Discharge Date Admission Date: April 04, 2020 Subjective Patient reports feeling better than when she first came in. She denies any nausea, vomiting, diarrhea. Review of Systems Review of Systems: All systems reviewed & are unremarkable except as noted in HPI & below Physical Exam Physical Exam: The patient is awake, alert and oriented 3, normocephalic and atraumatic, lying in bed and in no acute distress. HEENT--PERRL, EOMI, mucous membranes and oropharynx dry. Neck--supple. No JVD. No bruits. Thyroid normal, trachea midline, no adenopathy. Heart--normal S1 and S2. No murmurs, rubs or gallops. Lungs--coarse breath sounds with wheezes bilaterally. No respiratory distress, no accessory muscle use. Abdomen--normal bowel sounds and soft. Nontender. Nondistended. Morbidly obese Extremities--no cyanosis or clubbing. No edema. Dermatologic--normal skin turgor, normal color, no abnormal lymph nodes, no rash. Neurologic--cranial nerves II through XII grossly intact. Rheumatologic--normal range of motion. Psychiatric--normal affect. Results & Data Results & Data ([facility]) Vital Signs (Past 12 Hours) Vital Signs Temp Pulse Pulse Resp BP Pulse Ox 04/05/20 19:59 36.5 C 68 18 130/74 92 04/05/20 15:11 36.5 C 76 18 110/67 94 04/05/20 15:04 64 04/05/20 11:37 36.6 C 66 18 110/63 92 PG Care Time/CCT Total # of Minutes Spent Total Time Spent with Patient: Total time spent is greater than 50% in coordination of care (as documented) at patient's floor/unit and/or counseling patient: Coding Level of Care Code 44986 Subseq Hosp Care Lvl 3 Diagnoses Pneumonia due to COVID-19 virus U07.1; J12.89 Hypoxia R09.02 Asthma J45.909 Benign essential hypertension I10 Diabetes mellitus E11.9 Time Spent (min) 35
[2020-04-06] MEDS: AZITHROMYCIN 500 MG in DEXTROSE 5% 250 ML IV SCH (00:20)
[2020-04-06] MEDS ORDERED: Nursing to Pharmacy Communication SCH (01:45)
[2020-04-06] MEDS: dexAMETHasone 6 MG in SYRINGE 0 ML IV SCH ×2 (06:26→17:10)
[2020-04-06] MEDS: FLUTICASONE/VILANTEROL 200/25MCG 14 PUFFS/INHALER INH SCH (08:29)
[2020-04-06] MEDS: dilTIAZem HCL 300 MG CAPCR PO SCH (08:29)
[2020-04-06] MEDS: ENOXAPARIN INJ 60 MG/0.6 ML SYR SQ SCH (08:31)
[2020-04-06] MEDS: LOSARTAN POTASSIUM 50 MG TAB PO SCH (08:31)
[2020-04-06] MEDS: CETIRIZINE HCL 10 MG TABLET PO SCH (08:31)
[2020-04-06] MEDS: allopurinoL 300 MG TAB PO SCH (08:31)
[2020-04-06] MEDS: guaiFENesin 600 MG TABCR PO SCH ×2 (08:31→20:23)
[2020-04-06] MEDS: ASPIRIN 81 MG ECTAB PO SCH (08:31)
[2020-04-06] MEDS: INSULIN ASPART 100 UNITS/ML 3 ML PEN SC SCH ×4 (09:27→20:41)
--- NOTE | 2020-04-06 11:13 | XRay Report ---
XR chest 1V portable CLINICAL HISTORY: covid hypoxia COMPARISON STUDY: Chest radiograph April 04, 2020. FINDINGS: Elevation of the right hemidiaphragm is unchanged. Partial arthroplasty is noted. No pneumo thorax or pleural effusion is noted. Interstitial thickening has slightly improved. Bibasilar opaciti es persist. IMPRESSION: 1. Persistent bibasilar opacities. Left basilar opacity favors an infectious process. Right basilar o pacity may reflect atelectasis or an infectious process. 2. Slight improvement in interstitial thickening. 3. Stable marked elevation of the right hemidiaphragm. ACT 112: Negative or not required by law. Electronically signed by: Get Altman M.D. 04/06/2020 11:11 AM
[2020-04-06 14:28] LABS: Basophils # (auto) 0.01 K/uL (0-0.2); Basophils % (auto) 0.1 %; Hematocrit (blood only) 40.7 % (37-47); Hemoglobin 13.4 g/dL (12.0-16.0); Immature Granulocytes # (auto) 0.04 K/uL (0.00-0.02); Immature Granulocytes % (auto) 0.4 %; Lymphocytes # (auto) 0.87 K/uL (1.2-3.4); Lymphocytes % (auto) 9.5 %; Mean Corpuscular Hemoglobin 31.8 pg (25-34); Mean Corpuscular Hgb Conc 32.9 g/dL (32-36); Mean Corpuscular Volume 96.7 fL (80-100); Mean Platelet Volume 11.1 fL (7.4-10.4); Monocytes # (auto) 0.51 K/uL (0.11-0.59); Monocytes % (auto) 5.6 %; Neutrophils # (auto) 7.68 K/uL (1.4-6.5); Neutrophils % (auto) 84.4 %; Platelet Count 249 K/uL (130-400); RDW Standard Deviation 45.8 fL (36.4-46.3); Red Blood Count 4.21 M/uL (4.2-5.4); White Blood Count 9.11 K/uL (4.8-10.8)
[2020-04-06 15:23] LABS: BUN Creatinine Ratio 30.1 (10-20); Calcium 8.8 mg/dl (8.5-10.1); Creatinine Clr Calc Pharmacy 44.5 ml/min; Est GFR (African American) 47.8; Est GFR (Non-African American) 41.3; Ferritin 409.2 ng/ml (8-388); Potassium 4.3 mmol/L (3.5-5.1)
[2020-04-06] MEDS: MONTELUKAST SODIUM 10 MG TABLET PO SCH (20:24)
[2020-04-07] MEDS: cefTRIAXone SODIUM 2,000 MG in DEXTROSE 5% 50 ML IV SCH ×2 (00:52→20:39)
[2020-04-07] MEDS: AZITHROMYCIN 500 MG in DEXTROSE 5% 250 ML IV SCH (00:53)
[2020-04-07] MEDS: dexAMETHasone 6 MG in SYRINGE 0 ML IV SCH (06:28)
[2020-04-07] MEDS: FLUTICASONE/VILANTEROL 200/25MCG 14 PUFFS/INHALER INH SCH (07:43)
[2020-04-07] MEDS: ENOXAPARIN INJ 60 MG/0.6 ML SYR SQ SCH (07:43)
[2020-04-07] MEDS: dilTIAZem HCL 300 MG CAPCR PO SCH (07:44)
[2020-04-07] MEDS: LOSARTAN POTASSIUM 50 MG TAB PO SCH (07:44)
[2020-04-07] MEDS: allopurinoL 300 MG TAB PO SCH (07:44)
[2020-04-07] MEDS: ASPIRIN 81 MG ECTAB PO SCH (07:44)
--- NOTE | 2020-04-07 07:44 | Hospitalist Progress Note ---
Date of Service April 06, 2020 Assessment & Plan (1) Pneumonia due to COVID-19 virus: Pneumonia due to COVID-19 virus/likely associated secondary bacterial superinfection/hypoxia/history of asthma- Admit to monitored bed Decadron 6 mg IV every 12 hours (will taper to daily) Ceftriaxone 2 g IV daily. Azithromycin 500 mg IV daily She is not a candidate for remdesevir as too much time has passed since her initial diagnosis. Also WHO no longer states a benefit with this medication. Ventolin HFA 2 puffs 4 times daily, and every 2 hours as needed Guaifenesin extended release 600 mg p.o. twice daily Nasal cannula oxygen (2) Hypoxia: See above (3) Asthma: See above (4) Benign essential hypertension: Continue aspirin, candesartan, diltiazem. Hold furosemide and potassium chloride (5) Diabetes mellitus: Hold metformin. Placed in Accu-Cheks before meals and at bedtime with NovoLog coverage per scale. Follow glucose closely while on Decadron Admission and Anticipated Discharge Date Admission Date: April 04, 2020 Subjective Late input: Patient reports she does not appear to be at baseline. She contiues to require oxygen. Review of Systems Review of Systems: All systems reviewed & are unremarkable except as noted in HPI & below Physical Exam Physical Exam: The patient is awake, alert and oriented 3, normocephalic and atraumatic, lying in bed and in no acute distress. HEENT--PERRL, EOMI, mucous membranes and oropharynx dry. Neck--supple. No JVD. No bruits. Thyroid normal, trachea midline, no adenopathy. Heart--normal S1 and S2. No murmurs, rubs or gallops. Lungs--decreased wheezes bilaterally. No respiratory distress, no accessory muscle use. Abdomen--normal bowel sounds and soft. Nontender. Nondistended. Morbidly obese Extremities--no cyanosis or clubbing. No edema. Dermatologic--normal skin turgor, normal color, no abnormal lymph nodes, no rash. Neurologic--cranial nerves II through XII grossly intact. Rheumatologic--normal range of motion. Psychiatric--normal affect. Results & Data Results & Data ([facility]) Vital Signs (Past 12 Hours) Vital Signs Temp Pulse Pulse Resp BP Pulse Ox 04/07/20 03:40 36.7 C 56 L 22 153/87 H 91 04/07/20 00:01 64 04/06/20 23:44 36.5 C 66 23 149/77 H 91 PG Care Time/CCT Total # of Minutes Spent Total Time Spent with Patient: Total time spent is greater than 50% in coordination of care (as documented) at patient's floor/unit and/or counseling patient: Coding Level of Care Code 03396 Subseq Hosp Care Lvl 3 Diagnoses Pneumonia due to COVID-19 virus U07.1; J12.89 Hypoxia R09.02 Asthma J45.909 Benign essential hypertension I10 Diabetes mellitus E11.9 Time Spent (min) 35
[2020-04-07] MEDS: CETIRIZINE HCL 10 MG TABLET PO SCH (08:27)
[2020-04-07] MEDS: SODIUM CHLORIDE 0.9% 1000ML 1,000 ML IV SCH ×2 (08:27→22:26)
[2020-04-07] MEDS: guaiFENesin 600 MG TABCR PO SCH ×2 (08:27→20:49)
[2020-04-07] MEDS: INSULIN ASPART 100 UNITS/ML 3 ML PEN SC SCH ×4 (08:37→21:54)
--- NOTE | 2020-04-07 09:10 | XRay Report ---
XR chest 1V portable CLINICAL HISTORY: covid SHORTNESS OF BREATH COMPARISON STUDY: 04/06/2020 FINDINGS: The heart is mildly enlarged. There is persistent elevation of the right hemidiaphragmatic contour. Subtle bilateral airspace opacities persist. The findings could represent a multifocal colit is.[There are postsurgical changes of a reverse total right shoulder arthroplasty. IMPRESSION: 1. Persistent subtle bilateral pulmonary airspace opacities 2. Persistent elevation of the right hemidiaphragm 3. Mild cardiomegaly ACT 112: Negative or not required by law. Electronically signed by: Ab Hsieh M.D. 04/07/2020 9:09 AM
[2020-04-07 09:48] LABS: Basophils # (auto) 0.01 K/uL (0-0.2); Basophils % (auto) 0.1 %; Immature Granulocytes # (auto) 0.06 K/uL (0.00-0.02); Immature Granulocytes % (auto) 0.8 %; Lymphocytes % (auto) 11.7 %; Mean Corpuscular Hemoglobin 31.8 pg (25-34); Mean Corpuscular Hgb Conc 32.6 g/dL (32-36); Mean Corpuscular Volume 97.7 fL (80-100); Mean Platelet Volume 11.3 fL (7.4-10.4); Monocytes # (auto) 0.24 K/uL (0.11-0.59); Monocytes % (auto) 3.1 %; Neutrophils # (auto) 6.47 K/uL (1.4-6.5); Neutrophils % (auto) 84.3 %; Platelet Count 241 K/uL (130-400); RDW Coefficient of Variation 12.9 % (11.5-14.5); RDW Standard Deviation 46.4 fL (36.4-46.3); White Blood Count 7.68 K/uL (4.8-10.8)
[2020-04-07 10:05] LABS: Potassium 4.2 mmol/L (3.5-5.1)
[2020-04-07 10:46] LABS: BUN Creatinine Ratio 34.3 (10-20); Calcium 9.2 mg/dl (8.5-10.1); Creatinine Clr Calc Pharmacy 50.6 ml/min; Est GFR (African American) 55.3; Est GFR (Non-African American) 47.7; Ferritin 399.9 ng/ml (8-388)
[2020-04-07] MEDS ORDERED: MONTELUKAST SODIUM 10 MG TABLET PO SCH (20:00)
--- NOTE | 2020-04-07 22:25 | Hospitalist Progress Note ---
Date of Service April 07, 2020 Assessment & Plan (1) Pneumonia due to COVID-19 virus: Pneumonia due to COVID-19 virus/likely associated secondary bacterial superinfection/hypoxia/history of asthma- Admit to monitored bed Decadron 6 mg IV q24h Ceftriaxone 2 g IV daily. Azithromycin 500 mg IV daily She is not a candidate for remdesevir as too much time has passed since her initial diagnosis. Also WHO no longer states a benefit with this medication. Ventolin HFA 2 puffs 4 times daily, and every 2 hours as needed Guaifenesin extended release 600 mg p.o. twice daily Nasal cannula oxygen (2) Hypoxia: See above (3) Asthma: See above (4) Benign essential hypertension: Continue aspirin, candesartan, diltiazem. Hold furosemide and potassium chloride (5) Diabetes mellitus: Hold metformin. Placed in Accu-Cheks before meals and at bedtime with NovoLog coverage per scale. Follow glucose closely while on Decadron Admission and Anticipated Discharge Date Admission Date: April 04, 2020 Subjective 79 yo female reports no new symptoms. She reports feeling better and states she is close to her baseline, however she continues to require oxygen. Had extensive talk with patient on phone, prior to entering room. Review of Systems Review of Systems: All systems reviewed & are unremarkable except as noted in HPI & below Physical Exam Physical Exam: The patient is awake, alert and oriented 3, normocephalic and atraumatic, lying in bed and in no acute distress. HEENT--PERRL, EOMI, mucous membranes and oropharynx dry. Neck--supple. No JVD. No bruits. Thyroid normal, trachea midline, no adenopathy. Heart--normal S1 and S2. No murmurs, rubs or gallops. Lungs--decreased wheezes bilaterally. No respiratory distress, no accessory muscle use. Abdomen--normal bowel sounds and soft. Nontender. Nondistended. Morbidly obese Extremities--no cyanosis or clubbing. No edema. Dermatologic--normal skin turgor, normal color, no abnormal lymph nodes, no rash. Neurologic--cranial nerves II through XII grossly intact. Rheumatologic--normal range of motion. Psychiatric--normal affect. Results & Data Results & Data ([facility]) Vital Signs (Past 12 Hours) Vital Signs Temp Pulse Pulse Resp BP Pulse Ox 04/07/20 20:37 36.8 C 60 20 139/68 92 04/07/20 15:00 59 L 04/07/20 14:54 36.4 C L 49 L 22 135/67 90 04/07/20 12:08 36.8 C 71 20 130/69 91 PG Care Time/CCT Total # of Minutes Spent Total Time Spent with Patient: Total time spent is greater than 50% in coordination of care (as documented) at patient's floor/unit and/or counseling patient: Coding Level of Care Code 16859 Subseq Hosp Care Lvl 3 Diagnoses Pneumonia due to COVID-19 virus U07.1; J12.89 Hypoxia R09.02 Asthma J45.909 Benign essential hypertension I10 Diabetes mellitus E11.9 Time Spent (min) 35
[2020-04-08] MEDS: AZITHROMYCIN 500 MG in DEXTROSE 5% 250 ML IV SCH (00:40)
[2020-04-08] MEDS ORDERED: dexAMETHasone 6 MG in SYRINGE 0 ML IV SCH (07:00)
[2020-04-08 07:08] LABS: Creatinine Clr Calc Pharmacy 69.6 ml/min; Est GFR (African American) 80.1; Est GFR (Non-African American) 69.1
[2020-04-08] MEDS ORDERED: CETIRIZINE HCL 10 MG TABLET PO SCH (08:00)
[2020-04-08] MEDS ORDERED: allopurinoL 300 MG TAB PO SCH (08:00)
[2020-04-08] MEDS ORDERED: ASPIRIN 81 MG ECTAB PO SCH (08:00)
[2020-04-08] MEDS ORDERED: dilTIAZem HCL 300 MG CAPCR PO SCH (08:00)
[2020-04-08] MEDS: FLUTICASONE/VILANTEROL 200/25MCG 14 PUFFS/INHALER INH SCH (08:09)
[2020-04-08] MEDS: INSULIN ASPART 100 UNITS/ML 3 ML PEN SC SCH ×2 (08:25→12:09)
[2020-04-08] MEDS: guaiFENesin 600 MG TABCR PO SCH (08:45)
[2020-04-08] MEDS: ENOXAPARIN INJ 60 MG/0.6 ML SYR SQ SCH (08:45)
[2020-04-08 10:08] LABS: Basophils # (auto) 0.01 K/uL (0-0.2); Basophils % (auto) 0.1 %; Hematocrit (blood only) 40.4 % (37-47); Hemoglobin 13.1 g/dL (12.0-16.0); Immature Granulocytes # (auto) 0.06 K/uL (0.00-0.02); Immature Granulocytes % (auto) 0.8 %; Lymphocytes # (auto) 0.77 K/uL (1.2-3.4); Lymphocytes % (auto) 10.3 %; Mean Corpuscular Hemoglobin 31.7 pg (25-34); Mean Corpuscular Hgb Conc 32.4 g/dL (32-36); Mean Corpuscular Volume 97.8 fL (80-100); Mean Platelet Volume 11.3 fL (7.4-10.4); Monocytes # (auto) 0.77 K/uL (0.11-0.59); Monocytes % (auto) 10.3 %; Neutrophils % (auto) 78.5 %; Platelet Count 223 K/uL (130-400); RDW Standard Deviation 46.5 fL (36.4-46.3); Red Blood Count 4.13 M/uL (4.2-5.4); White Blood Count 7.51 K/uL (4.8-10.8)
[2020-04-08 10:17] LABS: BUN Creatinine Ratio 36.3 (10-20); Calcium 8.4 mg/dl (8.5-10.1); Est GFR (African American) 77.7; Est GFR (Non-African American) 67.1; Potassium 4.6 mmol/L (3.5-5.1)
[2020-04-08 10:21] LABS: Ferritin 353.2 ng/ml (8-388)
--- NOTE | 2020-04-08 10:43 | XRay Report ---
XR chest 1V portable CLINICAL HISTORY: covid RESPIRATORY DIFFICULTY COMPARISON STUDY: 04/07/2020 FINDINGS: The heart remains enlarged. There is persistent elevation of the right hemidiaphragm. There are subtle bilateral airspace opacities, similar to the prior study. There are postsurgical changes of a reverse total right shoulder arthroplasty[ IMPRESSION: 1. Persistent subtle bilateral pulmonary airspace opacities 2. Persistent elevation of the right hemidiaphragm ACT 112: Negative or not required by law. Electronically signed by: Ab Hsieh M.D. 04/08/2020 10:42 AM
--- NOTE | 2020-04-15 23:33 | Discharge Summary ---
Date of Service April 08, 2020 Admission HPI Per Admitting Provider The patient is a 79-year-old female with a past medical history of asthma, benign essential hypertension, common migraine without aura, diabetes mellitus, lumbar disc degeneration, hallux valgus with bunions and hypercholesterolemia. She was diagnosed with COVID-19 on 03/27, now was confirmed in the ED tonight. She reports that her symptoms had been improving until this morning, when she awoke with worsening cough and shortness of breath. Principal Diagnosis Pneumonia due to COVID 19 Discharge Exam The patient is awake, alert and oriented 3, normocephalic and atraumatic, lying in bed and in no acute distress. HEENT--PERRL, EOMI, mucous membranes and oropharynx dry. Neck--supple. No JVD. No bruits. Thyroid normal, trachea midline, no adenopathy. Heart--normal S1 and S2. No murmurs, rubs or gallops. Lungs--decreased wheezes bilaterally. No respiratory distress, no accessory muscle use. Abdomen--normal bowel sounds and soft. Nontender. Nondistended. Morbidly obese Extremities--no cyanosis or clubbing. No edema. Dermatologic--normal skin turgor, normal color, no abnormal lymph nodes, no rash. Neurologic--cranial nerves II through XII grossly intact. Rheumatologic--normal range of motion. Psychiatric--normal affect. Discharge Data Allergies Allergy/AdvReac Type Severity Reaction Status Date / Time Penicillins Allergy Intermediate HIVES Verified 04/04/20 16:14 hydrochlorothiazide AdvReac Unknown Verified 04/04/20 16:14 lisinopril AdvReac Unknown Verified 04/04/20 16:14 Consultations 04/04/20 18:11 ED Decision to Admit Stat 04/05/20 00:26 Consult Case Management - Discharge Planning Routine Hospital Course (1) Pneumonia due to COVID-19 virus: Pneumonia due to COVID-19 virus/likely associated secondary bacterial superinfection/hypoxia/history of asthma- Admit to monitored bed Decadron 6 mg IV q24h Ceftriaxone 2 g IV daily. Azithromycin 500 mg IV daily She is not a candidate for remdesevir as too much time has passed since her initial diagnosis. Also WHO no longer states a benefit with this medication. Ventolin HFA 2 puffs 4 times daily, and every 2 hours as needed Guaifenesin extended release 600 mg p.o. twice daily Nasal cannula oxygen Will dischage on decadron and cefuroxime. (2) Hypoxia: See above (3) Asthma: See above (4) Benign essential hypertension: Continue aspirin, candesartan, diltiazem. Hold furosemide and potassium chloride (5) Diabetes mellitus: Hold metformin. Placed in Accu-Cheks before meals and at bedtime with NovoLog coverage per scale. Follow glucose closely while on Decadron Total Time Total Time Spent Total Time Spent (In Minutes): 32 Total Time Includes: Examination of the Patient, Discharge Planning and Medication Reconciliation Discharge Plan Discharge Items Patient Disposition: Home - Self-Care Reason For Visit: COVID-19 PNEUMONIA WITH HYPOXIA Discharge Diagnosis: covid 19 pneumonia Activity: Resume your previous activity Non-emergency contact: Primary Care Provider Call non-emergency contact if: you have any medication questions Follow-up/Referrals: Filiberto Joseph MD [Primary Care Provider] - (Office will call with appt date and time) Diet: Regular, Carb Consistent or DM2 and Heart Healthy Addtl Attending Provider Instructions: Coronavirus disease 2019 (COVID-19) is a virus that causes a respiratory illness. It is caused by a coronavirus called 2019 novel coronavirus (2019-nCoV) . There are many types of coronavirus. Coronaviruses are a very common cause of bronchitis. They may sometimes cause lung infection(pneumonia). Symptoms can range from mild to severe respiratory illness. These viruses are also foundin some animals. COVID-19 was first found in people in [facility], in late 2019. In 2020, several cases of COVID-19 have been confirmed in the [place] Public health officials are working to find the source. How the virus spreads is not yet fully known. It may be spread through droplets of fluid that a person coughs or sneezes into the air. It may be spread if you touch a surface with virus on it, such as a handle or object, and then touch your mouth. What are the symptoms of COVID-19? Some people have no symptoms or mild symptoms. Symptoms may appear 2 to 14 days after contact with the virus. Symptoms can include: Fever Coughing Trouble breathing What are possible complications from COVID-19? In many cases, this virus can cause infection (pneumonia) in both lungs. In some cases, this can cause . How is COVID-19 diagnosed? Your healthcare provider will ask about your symptoms. He or she will also ask about your recent travel and contact with sick people. Testing for the virus is only done through the CDC. If yourhealthcare provider thinks you may have COVID-19, he or she will work with your local health department and the CDC on testing. Follow all instructions from your healthcare provider. COVID-19 is diagnosed by: Nasal and throat swab. A cotton-tipped swab is wiped inside your nose or throat. This is done to check for viruses in your nasal mucus. Sputum culture. A small sample of mucus coughed from your lungs (sputum) is collected if you have a cough. It is checked for the virus. How is COVID-19 treated? There is currently no medicine to treat the virus. Treatment is done to help your body while it fights the virus. This is known as supportive care. Supportive care may include: Pain medicine. These include acetaminophen and ibuprofen. They are used to help ease pain and reduce fever. Bed rest. This helps your body fight the illness. For severe illness, you may need to stay in the hospital. Care during severe illness may include: IV (intravenous) fluids.These are given through a vein to help keep your body hydrated. Oxygen. Supplemental oxygen or ventilation with a breathing machine (ventilator) may be given. This is done to keep enough oxygen in your body. Are you at risk for COVID-19? If youve been to a place where people have been sick with this virus, you are at risk for infection. You are at risk if you: Recently traveled to an affected area Had contact with a sick person who recently traveled to this area Had contact with a person who was diagnosed with COVID-19 How can COVID-19 be prevented? There is no vaccine yet. The best prevention is to not have contact with the virus. The CDC advises that people should not travel to areas where there are COVID-19 outbreaks right now for any reason that is not urgent. To help prevent spreading the infection, wash your hands often, or use an alcohol-basedhand programmer business. If you are in an area with COVID-19: Wash your hands often. Or use an alcohol-based hand programmer business often. Only touch your eyes, nose, or mouth with clean hands. Dont have contact with people who are sick. Follow local instructions about being in public. For example, you may be told to not use public transport for a period of time. Stay away from markets that have live or animals. Wash your hands after touching any animals. Don't touch animals that may be sick. Dont share eating or drinking tools with sick people. Dont kiss someone who is sick. Clean surfaces often with disinfectant. If you were in an area with COVID-19 in the last 14 days: Call your healthcare provider. He or she can talk with local health staff to see what action may be needed. Follow all instructions from your provider. Take your temperature every morning and evening for at least 14 days. This is to check for fever. Keep a record of the readings. Keep watch for symptoms of the virus. Tell your provider right away if you have symptoms. If you were in an area with COVID-19 and have a fever or other symptoms: Dont panic. Keep in mind that other illnesses can cause similar symptoms. Stay away from work, school, and public places. Limit physical contact with fa geronimo members. Don't kiss anyone or share eating or drinking utensils. Clean surfaces you touch with disinfectant. This is to help prevent the virus from spreading. Call your healthcare provider. Explain that you have been exposed to COVID-19 and have symptoms. Do this before going to any hospital. Wait for instructions. Keep in mind that healthcare staff may wear protective equipment such as m asks, gowns, gloves, and eye protection. You may be put in a separate room. This is to prevent the possible virus from spreading. Tell the healthcare staff about recent travel. This includes local travel on public transport. Staff may need to find other people you have been in contact with. Follow all instructions the healthcare staff give you. If you have been diagnosed with COVID-19 Follow all instructions from your healthcare provider. Dont leave your home, except to get medical care. Call your healthcare providers office before going. They can prepare and give you instructions. This will help prevent the virus from spreading. Dont go to work, school, or public areas. Dont use public transport or taxis. Stay away from other people in your home. Have them wear face masks around you. Dont share household items or food. Wear a face mask if you can. This includes at home or in a medical facility. Cover your face with a tissue when you cough or sneeze. Throw the tissue away. Wash your hands. Wash your hands often. Caregivers should: Follow all instructions from healthcare staff. Wear a face mask and protective clothing as advised. Wash hands often. Keep track of the sick persons symptoms. Clean surfaces, fabrics, and laundry thoroughly. Keep other people away from the sick person. When to call your healthcare provider Call your healthcare provider: If youve recently traveled and have symptoms If you have been diagnosed with COVID-19 and your symptoms are worse To learn more To find out more about COVID-19, visit the CDC website at www.cdc.gov/coronavirus/2019-ncov/index.html. The [employer] [address] [place] [address]. All rights reserved. This information is not intended as a substitute for professional medical care. Always follow your healthcare professional's instructions. This information has been adapted from [employer] Take the esomeprazole only until you complete your antibiotics. Pending Studies at Discharge: No Stand-Alone Forms: [facility], Smoking Cessation Medications and DC Order Prescriptions: New guaifenesin [Mucinex] 600 mg Tablet Extended Release 12hr 600 mg PO Q12H PRN (Reason: cough) Qty: 30 RF: 0 cefuroxime axetil 500 mg tablet 500 mg PO BID Qty: 4 RF: 0 dexamethasone [Decadron] 6 mg tablet 6 mg PO DAILY Qty: 5 RF: 0 esomeprazole magnesium [address] for susp in packet 20 mg PO DAILY 28 Days RF: 0 esomeprazole magnesium [address] for susp in packet 20 mg PO DAILY 28 Days Qty: 30 RF: 0 Continued albuterol sulfate 90 mcg/actuation HFA aerosol inhaler 2 puffs INH Q4H PRN (Reason: shortness of breath or wheezing) Qty: 18 RF: 0 allopurinol 300 mg tablet 300 mg PO DAILY Qty: 90 RF: 3 montelukast 10 mg tablet 10 mg PO QPM Qty: 90 RF: 3 furosemide 20 mg tablet 20 mg PO QAM Qty: 90 RF: 3 metformin 500 mg tablet extended release 24 hr 500 mg PO DAILY Qty: 90 RF: 3 aspirin [Adult Low Dose Aspirin] 81 mg tablet,delayed release (DR/EC) 81 mg PO DAILY RF: 0 cetirizine 10 mg tablet 10 mg PO DAILY RF: 0 fluticasone propion-salmeterol [Wixela Inhub] 250-50 mcg/dose blister with device 1 ea INHALATION BID RF: 0 potassium chloride 10 mEq tablet extended release 10 meq PO DAILY RF: 0 diltiazem HCl 300 mg capsule,extended release 24hr 300 mg PO DAILY RF: 0 Discontinued candesartan 8 mg tablet 8 mg PO DAILY Qty: 90 RF: 3 Discharge Orders: Discharge Order (Routine); Ordered 04/08/20 Ordered By: Garret Knight/Other Patient Handouts: Managing Type 2 Diabetes Admission Data Admit Date/Time: 04/04/20 18:42 Attending Provider: Garret Adame Admit Provider: Dorian Pino Primary Care Provider: Filiberto Joseph Other Providers: Dorian Pino Other Interventions: Discharge Summary Assessment (RN) Last Done: 04/08/20 11:35 Coding Level of Care Code D/C Day Management >30 mins Diagnoses Pneumonia due to COVID-19 virus U07.1; J12.89 Hypoxia R09.02 Asthma J45.909 Benign essential hypertension I10 Diabetes mellitus E11.9
== END 2020-04-08 14:00 | disposition home or self-care (01) | DRG 177 ==
LOC: ED 15:41 → SUATTDRO 18:42 → 2N 18:42

== ENCOUNTER 2021-09-30 05:23 | Observation (INO) ==
--- NOTE | 2021-09-11 10:05 | PAT Medication Instructions ---
Medication Instructions Date of Service September 11, 2021 Home Medications Medication Instructions Recorded Oxygen Home See Rx Instructions .ROUTE 04/19/20 .COMPLEX #1 ea albuterol sulfate 90 mcg/actuation 2 puff INH Q4H PRN #3 inhaler 08/21/20 aerosol inhaler montelukast 10 mg tablet 10 mg PO QPM #90 tab 11/13/20 BiPap Machine See Rx Instructions .ROUTE 12/17/20 .COMPLEX #1 ea fluticasone 250 mcg-salmeterol 50 See Rx Instructions .ROUTE 02/11/21 mcg/dose blistr powdr for .COMPLEX #180 each inhalation potassium chloride 8 mEq See Rx Instructions .ROUTE 02/26/21 tablet,extended release .COMPLEX #90 tab BiPap Supplies #1 ea 05/03/21 diltiazem HCl 300 mg See Rx Instructions .ROUTE 05/27/21 capsule,extended release 24 hr .COMPLEX #90 cap aspirin 81 mg tablet,delayed release (Adult Low Dose Aspirin) 81 mg PO QAM albuterol sulfate 90 mcg/actuation aerosol inhaler 2 puff INH Q4H PRN montelukast 10 mg tablet 10 mg PO QPM furosemide 20 mg tablet 20 mg PO .COMPLEX fluticasone 250 mcg-salmeterol 50 mcg/dose blistr powdr for inhalation See Rx Instructions potassium chloride 8 mEq tablet,extended release See Rx Instructions diltiazem HCl 300 mg capsule,extended release 24 hr See Rx Instructions acetaminophen 325 mg tablet (Tylenol) 325 mg PO QID PRN cetirizine 10 mg tablet 10 mg PO HS metformin 500 mg tablet,extended release 24 hr 500 mg PO QAM omeprazole 20 mg capsule,delayed release 20 mg PO QAM Continue as directed diltiazem HCl 300 mg capsule,extended release 24 hr See Rx Instructions DO NOT take the morning of surgery furosemide 20 mg tablet 20 mg PO .COMPLEX potassium chloride 8 mEq tablet,extended release See Rx Instructions metformin 500 mg tablet,extended release 24 hr 500 mg PO QAM Take morning of surgery With a small sip of water, OTHERWISE NOTHING TO EAT OR DRINK AFTER MIDNIGHT: aspirin 81 mg tablet,delayed release (Adult Low Dose Aspirin) 81 mg PO QAM (unless surgeon directs otherwise) albuterol sulfate 90 mcg/actuation aerosol inhaler 2 puff INH Q4H PRN (use if needed; please bring with you to hospital day of surgery if possible) fluticasone 250 mcg-salmeterol 50 mcg/dose blistr powdr for inhalation See Rx Instructions acetaminophen 325 mg tablet (Tylenol) 325 mg PO QID PRN (okay to take up to 4 hours prior to surgery if needed) omeprazole 20 mg capsule,delayed release 20 mg PO QAM Take evening before surgery albuterol sulfate 90 mcg/actuation aerosol inhaler 2 puff INH Q4H PRN (if needed) montelukast 10 mg tablet 10 mg PO QPM fluticasone 250 mcg-salmeterol 50 mcg/dose blistr powdr for inhalation See Rx Instructions furosemide 20 mg tablet 20 mg PO .COMPLEX (if scheduled to take) potassium chloride 8 mEq tablet,extended release See Rx Instructions (if scheduled to take) acetaminophen 325 mg tablet (Tylenol) 325 mg PO QID PRN (if needed) cetirizine 10 mg tablet 10 mg PO HS Other Notes If you have any questions please call us at [phone] or [phone] or [phone] or [phone]
--- NOTE | 2021-09-13 08:46 | Anesthesiology Consultation ---
Date of Service September 13, 2021 Assessment & Plan (1) Encounter for pre-operative examination: - Patient acceptable risk for surgery pending surgeon-ordered PCP preop evaluation (scheduled 09/16; [facility]). - COVID screening: Per assessment on 09/13: No known COVID-19 positive contacts or current COVID-19 related symptoms. Travel screen negative. Patient vaccinated. Surgeon arranging preop COVID testing. Awaiting results. - Check [facility] AM DOS Chart Review Chart Review: Patient seen in Pre Admission Testing Teaching & Discussion Pre-Anesthesia Teaching/Discussion Notes: Instructed NPO after midnight before surgery,except medications with 15 cc of water. Medication instructions provided according to the PAT guidelines. History Surgery Operation Date: 09/30/21 07:15 Proposed Procedures p Left Total Knee Arthroplasty - [place] MD Height/Weight Height: 5 ft 4 in Weight: 106.4 kg Allergies Allergy/AdvReac Type Severity Reaction Status Date / Time Penicillins Allergy Intermediate Hives Verified 09/13/21 08:45 hydrochlorothiazide AdvReac Unknown Unknown Verified 09/10/21 15:35 lisinopril AdvReac Unknown Unknown Verified 09/10/21 15:35 Medications Home Medications Medication Instructions Recorded Confirmed Last Taken aspirin 81 mg tablet,delayed 81 mg PO QAM 02/10/19 09/10/21 Unknown release (Adult Low Dose Aspirin) Oxygen Home See Rx Instructions .ROUTE 04/19/20 09/10/21 Unknown .COMPLEX #1 ea albuterol sulfate 90 mcg/actuation 2 puff INH Q4H PRN #3 inhaler 08/21/20 09/10/21 Unknown aerosol inhaler montelukast 10 mg tablet 10 mg PO QPM #90 tab 11/13/20 09/10/21 Unknown BiPap Machine See Rx Instructions .ROUTE 12/17/20 09/10/21 Unknown .COMPLEX #1 ea furosemide 20 mg tablet 20 mg PO .COMPLEX tab 12/17/20 09/10/21 Unknown fluticasone 250 mcg-salmeterol 50 See Rx Instructions .ROUTE 02/11/21 09/10/21 Unknown mcg/dose blistr powdr for .COMPLEX #180 each inhalation potassium chloride 8 mEq See Rx Instructions .ROUTE 02/26/21 09/10/21 Unknown tablet,extended release .COMPLEX #90 tab BiPap Supplies #1 ea 05/03/21 05/14/21 Unknown diltiazem HCl 300 mg See Rx Instructions .ROUTE 05/27/21 09/10/21 Unknown capsule,extended release 24 hr .COMPLEX #90 cap acetaminophen 325 mg tablet 325 mg PO QID PRN 09/10/21 09/10/21 Unknown (Tylenol) cetirizine 10 mg tablet 10 mg PO HS 09/10/21 09/10/21 Unknown metformin 500 mg tablet,extended 500 mg PO QAM 09/10/21 09/10/21 Unknown release 24 hr omeprazole 20 mg capsule,delayed 20 mg PO QAM 09/10/21 09/10/21 Unknown release Vitamin D3 2,000 unit PO DAILY 09/13/21 09/13/21 Unknown Past Medical History Medical History Asthma Stable Benign essential hypertension Common migraine without aura Disc degeneration, lumbar DM type 2 (diabetes mellitus, type 2) NIDDM GERD (gastroesophageal reflux disease) controlled Gout Herniated intervertebral disc History of COVID-19 Dx 03/2020 covid pneumonia > hospitalized at [facility] and d/c on home oxygen > still wearing oxygen at night (was not on prior to covid) History of thrombophlebitis History of TMJ disorder Hypercholesterolemia Morbid obesity Osteoarthritis Sleep apnea BiPAP (compliant) + nighttime O2 Urinary incontinence Exercise / Class Metabolic Activity III < 4 Walking/Shop/Light housework (one FS (no CP, occ SOB)) Past Family History Family History Mother Congestive heart failure Myocardial infarction Cancer Father Septicemia Persistent sinus bradycardia Sick sinus syndrome Slow to wake up after anesthesia Sister Hypothyroidism Daughter Esophageal cancer Daughter COPD (chronic obstructive pulmonary disease) Denies family history of Ovarian cancer Prostate cancer Breast cancer Lung cancer Colorectal cancer Past Surgical History Surgical History History of appendectomy History of cardiac cath approx 25 years ago - [place] - no stents History of carpal tunnel release of both wrists History of cataract surgery History of cholecystectomy History of colonoscopy History of esophagogastroduodenoscopy (EGD) History of hysterectomy History of oophorectomy History of rectal surgery closure of anal fistula with rectal advancement flap History of shoulder surgery History of tubal ligation Past Anesthesia History No Hx of Anesthesia Complications Father- significant bradycardia, "slow to wake" History of PONV No Hx of PONV and Hx of Motion Sickness (Occasional) Social History Smoking Status: Never smoker Do You Dip or Chew Tobacco: No Hx Alcohol Use: Yes Alcohol type: wine alcohol intake frequency: holidays/special occasions only Hx Substance Use: No substance use type: does not use Review of Systems Patient denies chest pain, shortness of breath, fever, chills, cough, wheezing, palpitations. Physical Exam Vital Signs VITALS BP 139/68 P 67 TEMP 98.3 SP02 95%RA RESP 18 PHYSICAL Full cervical extension range of motion. Full TMJ range of motion. TMD 3 finger breaths Mallampati Score 2 Dentition: full dentures upper/lower Lungs: clear throughout to auscultation Cardiac: regular rate and rhythm, no murmurs noted Spine: normal Carotid arteries: negative bruit Extremities: no edema Lab Results Anesthesia Preop Results Results Anesthesia Widget: WBC 7.15 K/uL (4.8-10.8) 09/13/21 Hgb 15.0 g/dL (12.0-16.0) 09/13/21 Hct 45.2 % (37-47) 09/13/21 Plt 182 K/uL (130-400) 09/13/21 Na 139 mmol/L (136-145) 09/13/21 K 3.8 mmol/L (3.5-5.1) 09/13/21 Cl 104 mmol/L (98-107) 09/13/21 CO2 29 mmol/L (21-32) 09/13/21 BUN 22 mg/dl (6-23) 09/13/21 Creat 1.05 mg/dl (0.6-1.2) 09/13/21 Glucose Level 164 mg/dl (70-99(Fasting)) H 09/13/21 PT 10.7 Seconds (9.0-12.0) 09/13/21 PTT 25.0 Seconds (21.0-31.0) 09/13/21 INR 1.0 (0.9-1.1) 09/13/21 HA1c 6.0 % (4.5-5.6) H 09/13/21 Urine Color Dark Yellow 09/13/21 Urine Appearance Cloudy (Clear) A 09/13/21 Urine pH 5.0 (4.5-7.5) 09/13/21 Urine Specific [place] 1.036 (1.000-1.030) H 09/13/21 Urine Protein Trace (Negative) H 09/13/21 Urine Glucose (UA) Negative (Negative) 09/13/21 Urine Ketones Trace (Negative) H 09/13/21 Urine Blood Negative (Negative) 09/13/21 Urine Nitrite Negative (Negative) 09/13/21 Urine Bilirubin 1+ (Negative) H 09/13/21 Urine Urobilinogen Negative (Negative) 09/13/21 Urine Leukocyte Esterase Negative (Negative) 09/13/21 Urine WBC (Auto) 1-5 /hpf (0-5) 09/13/21 Urine RBC (Auto) 5-10 /hpf (0-4) H 09/13/21 Urine Hyaline Casts (Auto) 0 /lpf (0-5) 09/13/21 Urine Epithelial Cells (Auto) 10-20 /lpf (0-5) H 09/13/21 Urine Bacteria (Auto) Negative (Negative) 09/13/21 Blood Type A Positive 09/13/21 Antibody Screen NEGATIVE 09/13/21 Testing Electrocardiogram Date: 09/13/21 Sinus rhythm with PSVCs is at 62 bpm. Otherwise normal ECG. *Poor data quality Chest X-Ray Date: 01/07/21 No acute findings. Chronic eventration of the right hemidiaphragm with corresponding passive atelectasis of the right lung base. Question chronic pulmonary vascular congestion without acutely decompensated heart failure. Echocardiogram Date: 11/22/19 EF 65-70%. No regional motion abnormality. Grade 1 diastolic dysfunction. Mild concentric LVH. Mild LAD. Trace mitral and tricuspid regurgitation. Normal RVSP. Stress Test Date: 09/18/20 Type: DSE Normal dobutamine echocardiogram without evidence of inducible ischemia. Moderate concentric LVH. 87% MPHR. EF 55-60%. No significant valvular disease.
--- NOTE | 2021-09-27 17:28 | History & Physical Report ---
Date of Service September 27, 2021 Assessment & Plan (1) Primary osteoarthritis of left knee: Plan: Treatment options discussed with the patient. She has failed conservative measures. She would like to proceed with surgical intervention. Risks, benefits and alternatives to surgery including but not limited to infection, DVT, pain, stiffness, need for revision surgery, damage to blood vessels, damage to nerves, PE, , were discussed with the patient and they wish to proceed. Plan for left total knee arthroplasty scheduled for September 30 at [facility] with Dr. South. We will plan on Xarelto postoperatively for DVT prophylaxis. We will plan on inpatient rehab/SNF postop. All questions answered. Patient will follow up postoperatively. History of Present Illness Chief Complaint: Left knee pain Primary Care Provider: Filiberto Joseph MD 81-year-old female with past medical history significant for asthma, ERIN, diabetes mellitus type 2, GERD who presents with ongoing left knee pain. Patient has failed conservative measures. Pain is interfering with daily activities. Patient would like to proceed with surgical intervention. Patient denies headaches, sweats, fevers, chills, double vision, blurred vision, cough, sore throat, dysphagia, chest pain, sob, wheezing, n/v/d/c, numbness, tingling, fatigue, urinary symptoms, mood disorders. ROS positive for left knee pain and stiffness. Allergies Allergy/AdvReac Type Severity Reaction Status Date / Time Penicillins Allergy Intermediate Hives Verified 09/16/21 13:38 hydrochlorothiazide AdvReac Unknown Unknown Verified 09/16/21 13:38 lisinopril AdvReac Unknown Unknown Verified 09/16/21 13:38 Home Medications Medication Instructions Recorded Confirmed Type aspirin 81 mg tablet,delayed 81 mg PO QAM 02/10/19 09/16/21 History release (Adult Low Dose Aspirin) Oxygen Home See Rx Instructions .ROUTE 04/19/20 09/16/21 Rx .COMPLEX #1 ea albuterol sulfate 90 mcg/actuation 2 puff INH Q4H PRN #3 inhaler 08/21/20 09/16/21 Rx aerosol inhaler montelukast 10 mg tablet 10 mg PO QPM #90 tab 11/13/20 09/16/21 Rx BiPap Machine See Rx Instructions .ROUTE 12/17/20 09/16/21 Rx .COMPLEX #1 ea furosemide 20 mg tablet 20 mg PO .COMPLEX tab 12/17/20 09/16/21 History fluticasone 250 mcg-salmeterol 50 See Rx Instructions .ROUTE 02/11/21 09/16/21 Rx mcg/dose blistr powdr for .COMPLEX #180 each inhalation potassium chloride 8 mEq See Rx Instructions .ROUTE 02/26/21 09/16/21 Rx tablet,extended release .COMPLEX #90 tab BiPap Supplies #1 ea 05/03/21 09/16/21 Rx diltiazem HCl 300 mg See Rx Instructions .ROUTE 05/27/21 09/16/21 Rx capsule,extended release 24 hr .COMPLEX #90 cap acetaminophen 325 mg tablet 325 mg PO QID PRN 09/10/21 09/16/21 History (Tylenol) cetirizine 10 mg tablet 10 mg PO HS 09/10/21 09/16/21 History metformin 500 mg tablet,extended 500 mg PO QAM 09/10/21 09/16/21 History release 24 hr omeprazole 20 mg capsule,delayed 20 mg PO QAM 09/10/21 09/16/21 History release Vitamin D3 2,000 unit PO DAILY 09/13/21 09/16/21 History Past Med/Surg History Medical History Asthma Stable Benign essential hypertension Common migraine without aura Disc degeneration, lumbar DM type 2 (diabetes mellitus, type 2) NIDDM GERD (gastroesophageal reflux disease) controlled Gout Herniated intervertebral disc History of COVID-19 Dx 03/2020 covid pneumonia > hospitalized at [facility] and d/c on home oxygen > still wearing oxygen at night (was not on prior to covid) History of thrombophlebitis History of TMJ disorder Hypercholesterolemia Morbid obesity Osteoarthritis Sleep apnea BiPAP (compliant) + nighttime O2 Urinary incontinence Surgical History History of appendectomy History of cardiac cath approx 25 years ago - [place] - no stents History of carpal tunnel release of both wrists History of cataract surgery History of cholecystectomy History of colonoscopy History of esophagogastroduodenoscopy (EGD) History of hysterectomy History of oophorectomy History of rectal surgery closure of anal fistula with rectal advancement flap History of shoulder surgery History of tubal ligation Family History Mother Congestive heart failure Myocardial infarction Cancer Father Septicemia Persistent sinus bradycardia Sick sinus syndrome Slow to wake up after anesthesia Sister Hypothyroidism Daughter Esophageal cancer Daughter COPD (chronic obstructive pulmonary disease) Denies family history of Ovarian cancer Prostate cancer Breast cancer Lung cancer Colorectal cancer Social History Smoking Status: Never smoker Second Hand Exposure: Yes ( smoked); Do You Dip or Chew Tobacco: No; Hx Alcohol Use: Yes Alcohol type: wine Hx Substance Use: No Preferred Language: Guyanese Communication Ability: Effective Visual Impairment: Partially Limited Hearing Ability: Normal Resource Manager Required: No Beliefs That Will Affect Care: None marital status: / Current Living Situation: Alone current occupational status: retired How many Children do You have: 3 Feels Safe at Home: Yes Safety Concerns: Feels Safe At This Time Childhood Exposure to Second-Hand Smoke: Yes Diet Comment: limits carbs/sweets and salts caffeine: No during the past year weight has: remained stable Dental Care, Regularly: No Physical Activity Frequency: Does not Exercise Seatbelt Use: sometimes Sunscreen Use: No Assistive Devices: BiPap, Cane, Denture - Upper, Denture - Lower and Oxygen - Continuous Assistive Devices Comment: oxygen at night Review of Systems All systems reviewed & are unremarkable except as noted in HPI & below Physical Exam Constitutional: well developed and well nourished; no acute distress Eyes: PERRL, conjunctivae normal, anicteric sclerae ENMT: external ear and nose normal, oropharynx normal Neck: trachea midline, no thyromegaly Respiratory: normal respiratory effort, lungs clear to auscultation Cardiovascular: RRR, no murmur, no edema Musculoskeletal: Left knee: Varus alignment. Mild effusion. Tenderness medial joint line. Mild crepitation. There is painful range of motion. Range of motion is 5 to 110 degrees. Stable to valgus and varus stress test. Skin: no rashes, warm and dry Neurologic: patellar DTR's 2+ bilat, sensation intact Psychiatric: A+Ox3, euthymic affect Results & Data ([facility]) Diagnostic Findings Left knee: End-stage osteoarthritis left knee. [id number] medial compartment with subchondral sclerosis and periarticular osteophyte formation. There is subluxation of femur on tibia.
[2021-09-30] MEDS ORDERED: TRANEXAMIC ACID 1,000 MG **IV Intra-op IV SCH (06:00)
[2021-09-30] MEDS ORDERED: TRANEXAMIC ACID 1,000 MG **IV Pre-op IV SCH (06:00)
[2021-09-30] MEDS ORDERED: LR 500ML BOLUS, THEN 15ML/HR IV SCH (06:00)
[2021-09-30] MEDS ORDERED: FAMOTIDINE 20 MG TAB PO SCH (06:00)
[2021-09-30] MEDS ORDERED: ACETAMINOPHEN 500 MG TAB PO SCH (06:00)
[2021-09-30] MEDS ORDERED: VANCOMYCIN HCL 1,500 MG in SODIUM CHLORIDE 0.9% 500 ML IV SCH (06:00)
[2021-09-30] MEDS ORDERED: ROPIVACAINE 0.5% HCL/PF 150 MG, BUPIVACAINE 0.75% MPF 20 ML, EPINEPHrine 30MG/30ML (OR ... INFIL SCH (06:00)
[2021-09-30] MEDS ORDERED: CeleBREX 200 MG CAP PO SCH (06:00)
[2021-09-30] MEDS ORDERED: METOCLOPRAMIDE HCL 10 MG TABLET PO SCH (06:00)
[2021-09-30] MEDS ORDERED: GABAPENTIN 300 MG CAP PO SCH (06:00)
[2021-09-30] MEDS ORDERED: BUPIVACAINE 0.5 % 5 MG/1 ML PF 10ML VIAL ONE (06:27)
[2021-09-30] MEDS ORDERED: ROPIVACAINE 0.5% 5 MG/ML 30 ML VIAL ONE (06:27)
[2021-09-30] MEDS ORDERED: fentaNYL citrate 100 MCG/2 ML VIAL IV PRN (06:48)
[2021-09-30] MEDS ORDERED: ONDANSETRON INJ 2 MG/ML 2 ML VIAL IV PRN ×2 (06:48→11:43)
[2021-09-30] MEDS ORDERED: ATROPINE SULFATE 0.1 MG/ML 10ML SYR IV PRN (06:48)
[2021-09-30] MEDS ORDERED: ePHEDrine sulfate 50 MG/ML AMP IV PRN (06:48)
[2021-09-30] MEDS ORDERED: HYDROmorphone INJ 2 MG/ML SYR/VIAL IV PRN (06:48)
[2021-09-30] MEDS ORDERED: ONDANSETRON INJ 2 MG/ML 2 ML VIAL ONE (06:56)
[2021-09-30] MEDS ORDERED: LIDOCAINE 2% 2 ML VIAL/AMP(20MG/ML) INFIL ONE (06:56)
[2021-09-30] MEDS ORDERED: MIDAZOLAM HCL 1 MG/ML 2ML VIAL ONE (06:56)
[2021-09-30] MEDS ORDERED: PROPOFOL IV EMULSION 10 MG/ML 20 ML VIAL IV ONE ×4 (06:56→09:34)
[2021-09-30] MEDS ORDERED: DEXAMETHASONE SOD INJ 4 MG/ML VIAL ONE (06:56)
[2021-09-30] MEDS ORDERED: fentaNYL citrate 100 MCG/2 ML VIAL ONE (06:56)
[2021-09-30] MEDS ORDERED: ORTHO JOINT ANESTHETIC ONE (06:57)
--- NOTE | 2021-09-30 07:15 | History & Physical Bridge Note ---
Date of Service September 30, 2021 History & Physical Bridge Note I have examined the patient, reviewed the History & Physical and in the interval since the performance of the History & Physical I have noted the following changes of clinical significance: no changes noted
--- NOTE | 2021-09-30 09:30 | Operative Report ---
Post Operative Report Pre & Post Diagnosis Operation Date: 09/30/21 07:15 Pre-Op Diagnosis: Left Knee Osteoarthritis Post-Op Diagnosis: Left Knee Osteoarthritis I identified the patient and participated in the time-out.: Yes Procedure Operation Date: 09/30/21 07:15 Actual Procedures p Left Total Knee Arthroplasty(Left) - Tray South MD Surgeon Tray South MD Supervisor Machine Setter Tate RIDER Estimated Blood Loss 5 Findings Consistent with Post-Op Diagnosis Specimens Bone cuts Drains 2 Hemovac Anesthesia Type General Regional Complications None Disposition Disposition: Recovery Room Indications 81-year-old female with progressive osteoarthritis bilateral knees left greater than right with [id number] left knee subluxation few medial and the tibia tri compartmental osteoarthritis and limited motion Description of Procedure Patient taken to the operating room the size under spinal MAC regional block a nesthesia. Patient was placed supine on the operating table. A pneumatic tourniquet was placed about the left obese upper thigh. The left lower extremity was prepped and draped in sterile fashion. Knee exam demonstrated 0 through 100 degrees range of motion with some medial pseudolaxity with valgus stress. The leg was elevated exsanguinated with an Esmarch bandage and pneumatic tourniquet was raised to 350 millimeters of mercury. Skin incised sharply in longitudinal fashion. Subcutaneous flaps elevated. Incision was made through the medial retinaculum extending up in the mid third of the quadriceps tendon and down to the medial tibial tubercle. Intra-articular findings demonstrated tricompartmental osteoarthritis with grade 4 medial compartment [id number] with eburnated bone and grade 4 lateral femoral condyle osteoarthritis due to subluxation and impingement on the tibial spine which was also grade 4 and the central patella was grade III-IV chondromalacia. There was diffuse synovitis. The [employer] triathlon total knee arthroplasty system was used. To expose the knee the infrapatellar fat pad was resected. The meniscal remnants and cruciate ligaments were resected. The anterior fat pad over the femur in the area of the anterior flange of the femoral component was resected. Lateral synovial bands release. The femur was exposed. An intramedullary drill hole was made into the canal. A guide fannie was placed. Distal femoral cutting guide was adjusted to resect a 5 degree valgus cut with 8 millimeters distal femur resected. The knee was extended and a subperiosteal peel lateral release was performed around the patella. Patella width was measured and width was reproduced using a freehand cut technique and a 33 symmetrical patella component. The 3 drill holes were made and the excess lateral facet was beveled off to prevent any impingement. Attention was taken back to the femur which was exposed with retractors and the femoral sizing guide was pinned in position. The drill holes were placed in 3 of external rotation to match epicondylar axis. Femur sized for a 5 posterior stabilized component. The 4-in-1 cutting block was placed and then the anterior posterior and chamfer cuts are made. The tibia was then subluxed. The external tibial cutting guide was just to make a perpendicular cut to the long axis of the tibia below the most deficient bone loss side. A lamina space technologist was used and the flexion extension gaps were balanced. All posterior osteophytes removed. All meniscal remnants were resected. The tibia exposed and the trial tibial component size 4 was externally rotated in line with the tibial tubercle and pinned in position. The punch for stem was used. The notch cutting device was centered appropriately and the femoral notch cut was made. The femoral trial was inserted. Trial tibial inserts were placed and size 11 posterior stabilized gave balanced ligaments through flexion and extension. Patella tracking was assessed. The patella tracked centrally. The trial components were then removed and the orthomix anesthetic cocktail was injected per protocol. The knee was then copiously irrigated with pulsatile lavage saline solution. Final components were then cemented with Simplex cement. Final components were Jennifer triathlon posterior stabilized size 5 left femoral component, size 4 primary tibial basep late, size 11 tibial polyethylene posterior stabilized insert, 33 x 9 symmetrical patella. After the cement cured the Betadine soak was used for 3 minutes. Further pulsatile lavage irrigation was then performed and 2 Hemovac drains were brought out laterally. The quadriceps tendon and medial retinaculum were closed with figure of 8 #1 Vicryl sutures. The knee was taken through full range of motion and the repair was secure. Knee range of motion was 0 through 135 degrees The subcutaneous tissues were closed with 2-0 Vicryl sutures. Skin was closed with rosanne. Peter and Acticoat superficial wound VAC was The patient tolerated the procedure well. Tate RIDER was my physician assistant pressman who participated as first aid instructor and was involved in all aspects of the procedure including patient positioning prepping and draping,leg positioning ,soft tissue retraction and instrument management and participated in the closing placement of the superficial wound VAC and will participate in postoperative care of the patient. The patient tolerated the procedure well. I attest to the content of the Intraoperative Record and any orders documented therein. Any exceptions are noted below.
--- NOTE | 2021-09-30 11:18 | Anesthesiology Progress Note ---
Date of Service September 30, 2021 Anesthesia Post Procedure Vital Signs Vital Signs: Temp Pulse Pulse Resp BP Pulse Ox 09/30/21 11:10 51 L 20 112/52 L 94 09/30/21 11:00 49 L 19 101/50 L 94 09/30/21 10:50 36.1 C L 51 L 18 121/53 L 94 09/30/21 10:40 56 L 14 125/62 96 09/30/21 10:30 58 L 13 142/66 H 98 09/30/21 10:20 65 14 139/66 99 09/30/21 10:11 36.6 C 60 14 135/57 L 93 09/30/21 06:00 36.8 C 61 20 150/72 H 94 Pain Intensity Left Knee: Pain Intensity: 1 Transfer of Care Handoff Completed per policy Notes Mental Status: alert / awake / arousable and participated in evaluation Patient Amnestic to Procedure: Yes Nausea / Vomiting: adequately controlled Pain: adequately controlled Airway Patency, RR, SpO2: stable & adequate BP & HR: stable & adequate Hydration State: stable & adequate Anesthetic Complications: no major complications apparent and Pt Satisfied with anesthetic care
[2021-09-30] MEDS ORDERED: MAGNESIUM HYDROXIDE SUSP 30 ML UDC PO PRN (11:43)
[2021-09-30] MEDS ORDERED: VANCOMYCIN CONSULT ACTIVE PRN (11:43)
[2021-09-30] MEDS ORDERED: NALOXONE HCL 0.4 MG/1 ML VIAL/CARP IV PRN (11:43)
[2021-09-30] MEDS ORDERED: bisacodyL 10 MG SUPP PR PRN (11:43)
[2021-09-30] MEDS ORDERED: PHARMACY GLYCEMIC MGMT CONSULT PRN (11:43)
[2021-09-30] MEDS ORDERED: ALBUTEROL HFA 8 GM INHALER INH PRN (11:43)
[2021-09-30] MEDS ORDERED: HYDROmorphone INJ 0.5 MG/0.5 ML SYR IV PRN (11:43)
[2021-09-30] MEDS ORDERED: METOCLOPRAMIDE HCL INJ 5 MG/ML 2 ML VIAL IV PRN (11:43)
--- NOTE | 2021-09-30 11:45 | XRay Report ---
TWO VIEWS LEFT KNEE CLINICAL HISTORY: Postoperative examination. FINDINGS: AP and crosstable lateral portable views of the left knee are obtained. A left knee arthrop lasty is in near anatomic alignment. There has been undersurface remodeling of the patella. No acute fracture is seen. There are expected postoperative changes around the knee including skin clips, a macias rgical drain, soft tissue edema, and subcutaneous gas. IMPRESSION: Expected postoperative changes status post left knee arthroplasty. No acute fracture is s een. ACT 112: Negative or not required by law. Electronically signed by: Isaias Hobson M.D. 09/30/2021 11:44 AM
[2021-09-30] MEDS ORDERED: GLUCOSE 10 TABS/TUBE PO PRN (12:00)
[2021-09-30] MEDS ORDERED: DEXTROSE 50% 50 ML SYRINGE IV PRN (12:00)
[2021-09-30] MEDS ORDERED: GLUCOSE 40% GEL 15 GM TUBE PO PRN (12:00)
[2021-09-30] MEDS ORDERED: GLUCAGON FOR INJ 1 MG VIAL IM PRN (12:00)
[2021-09-30] MEDS ORDERED: CARBOHYDRATES FOR HYPOGLYCEMIA PO PRN (12:00)
--- NOTE | 2021-09-30 12:04 | Pharmacy Report ---
Pharmacy Glycemic Short Note 2 - Date of Service September 30, 2021 - Glycemic Short BSG Results (Last 24 hours): 09/30/21 09/30/21 05:58 10:13 POC Glucose 140 H 120 H OUTPATIENT ANTIDIABETIC REGIMEN: * Metformin 500 mg PO daily * HbA1c: 6% (09/13/21) ASSESSMENT: * BR is a 81 year old female POD #0 s/p left total knee arthroplasty * Received 8 mg IV dexamethasone perioperatively * Preop BSG of 140 mg/dL and postop BSG of 120 mg/dL * Given excellent HbA1c and reasonable BSGs so far today, will hold off on basal insulin and utilize Novolog only PLAN FOR INPATIENT GLYCEMIC CONTROL: * Hold outpatient oral diabetes medications * Likely restart metformin tomorrow morning * Basal insulin * Hold * Bolus insulin * NovoLog per scale ACHS or Q6hrs while NPO * Goal Range: Low 110 mg/dL - High 140 mg/dL * Correction Factor: 25 mg/dL/unit * Nutritional / Prandial insulin per carb ratio of 1 unit per 9 grams CHO consumed
--- NOTE | 2021-09-30 12:24 | Hospitalist Consultation ---
Date of Consultation September 30, 2021 Assessment & Plan (1) Primary osteoarthritis of left knee: s/p Left Total Knee Arthroplasty(Left) - Tray South MD. EBL 5cc Pain management/bowel regimen/PT/OT per primary service DVT prophylaxis per primary service and they are planning Xarelto for DVT prophylaxis --> ordered to begin in AM /17 . No hx DVT/PE but stated "phlebitis" in the past Per patient, she is hopeful monitoring overnight/discharge tomorrow (2) Diabetes mellitus: A1c 6.0 on most recent check, on metformin 500mg daily which will be held during inpatient stay BSG Ac/HS, SSI while inpatient steroids from surgery -- loosened ISS given A1c 6.0 Monitor (3) Asthma: continue home medications -- montelukast 10mg, cetirizine 10mg, fluticasone, albuterol as needed --> 98% on 3L, faint wheezing anterior lung field. No sob. --> Discussed albuterol HFA available if needed. Titrate O2 post-op to maintain sat Montior (4) Obstructive sleep apnea: continue BiPAP HS and napping -- wears O2 with BiPAP, was not on O2 prior to previous COVID infection in 2019 --> did not bring her home machine, order placed (5) Gastroesophageal reflux disease without esophagitis: on omeprazole 20mg SIGN PAINTER, protonix ordered while inpatient (6) HTN (hypertension): BP stable -- continues on cardizem 300mg daily, lasix 20mg (can hold lasix until eval in am/cr evaluated) Monitor Thank you for allowing hospitalist group to participate in the care of Ms. Jett. Hospitalist service will follow along. Please call with any questions/concerns Supervising Physician Co-Signing Physician Notes Attending Attestation & Consult Note: Pt seen/examined, chart reviewed, care plan d/w TERESO Flowers. I agree w/ the arrieta components of her documentation. 81yo female with asthma, DM, ERIN on BIPAP/O2, GERD, HTN - who presented today for elective L TKR by Dr South. I saw her late in the day on the orthopedic floor. She was resting comfortably without any pain. Denied any chest pain, dyspnea, cough, abd pain or nausea. PMH/PSH/allergies/meds/sochx/famhx - reviewed VSS, afebrile gen - obese, NAD neck - no JVD mouth - MMM heart - RRR, s1 s2 lungs - CTA b/l; no wheeze abd - soft NT; minimally distended; BS+ musculo - left knee dressings intact, drain in place ext - no edema, pulses 2+ b/l A/P: 1. s/p left TKR - defer pain management, DVT proph (xarelto 10mg daily), dispo to ortho. 2. asthma - albuterol prn; cont other usual inhalers. 3. ERIN - BIPAP HS; blend with O2. 4. MORBID OBESITY - BMI 40.3. 5. pre-DM - DM diet, check BSGs ac/hs, novolog SSI as needed. Thank you for this consult. Will follow with you. Caleb Fernando MD History of Present Illness Reason for Consultation: post-op management Requesting Physician: Dr South Attending Physician: Tray South MD History of Present Illness 81yo female with PMHx significant for HTN, HLD, ERIN, DM II, Asthma, GERD, presented for LEFT TKA with Dr South. Sitting up in bed eating lunch, no acute distress. Denies any pain at this time. NVI and able to wiggle toes. Eating/drinking no issue except slight discomfort from airway. Hx of asthma and not usually on oxygen except at night with her BiPAP, which she has been using with great improvement in daytime sleepiness since she was diagnosed in the past with COVID. Takes zyrtec and singulair, occasionally uses the albuterol HFA (last use this past weekend) and notes increased use of albuterol with seasonal changes/warmer weather this past weekend. She did not bring her home machine and not sure of home settings. Will order our unit for tonight. Noted history of ""thromboembolic phenomena in the past" and discussed with patient -- she reported traume to lower leg many many years ago and developed a bruise and then was told she had superficial thrombophlebitis. No history of DVT or PE. Discussed Xarelto for DVT prophylaxis. She does take occasional aspirin for hip pain, but discussed avoiding ASA/NSAIDs while on AC to prevent bleeding and use tylenol instead. She does have hx HTN, but had negative dobutamine stress testing in September 2020. Takes cardizem for BP, and also on lasix 20mg but she notes she takes this 3x/week for blood pressure as daily caused too many lows/dizziness. Will hold while inpatient No fever/chills, chest pain, shortness of breath, abdominal pain, nausea, vomiting or other issues at this time. Allergies Allergy/AdvReac Type Severity Reaction Status Date / Time Penicillins Allergy Intermediate Hives Verified 09/30/21 05:47 hydrochlorothiazide AdvReac Unknown Cough Verified 09/30/21 05:47 lisinopril AdvReac Unknown Cough Verified 09/30/21 05:48 Home Medications Medication Instructions Recorded Confirmed Type aspirin 81 mg tablet,delayed 81 mg PO QAM 02/10/19 09/30/21 History release (Adult Low Dose Aspirin) Oxygen Home See Rx Instructions .ROUTE 04/19/20 09/30/21 Rx .COMPLEX #1 ea albuterol sulfate 90 mcg/actuation 2 puff INH Q4H PRN #3 inhaler 08/21/20 09/30/21 Rx aerosol inhaler montelukast 10 mg tablet 10 mg PO QPM #90 tab 11/13/20 09/30/21 Rx BiPap Machine See Rx Instructions .ROUTE 12/17/20 09/30/21 Rx .COMPLEX #1 ea furosemide 20 mg tablet 20 mg PO .COMPLEX tab 12/17/20 09/30/21 History fluticasone 250 mcg-salmeterol 50 See Rx Instructions .ROUTE 02/11/21 09/30/21 Rx mcg/dose blistr powdr for .COMPLEX #180 each inhalation potassium chloride 8 mEq See Rx Instructions .ROUTE 02/26/21 09/30/21 Rx tablet,extended release .COMPLEX #90 tab BiPap Supplies #1 ea 05/03/21 09/16/21 Rx diltiazem HCl 300 mg See Rx Instructions .ROUTE 05/27/21 09/30/21 Rx capsule,extended release 24 hr .COMPLEX #90 cap acetaminophen 325 mg tablet 325 mg PO QID PRN 09/10/21 09/30/21 History (Tylenol) cetirizine 10 mg tablet 10 mg PO HS 09/10/21 09/30/21 History metformin 500 mg tablet,extended 500 mg PO QAM 09/10/21 09/30/21 History release 24 hr omeprazole 20 mg capsule,delayed 20 mg PO QAM 09/10/21 09/30/21 History release Vitamin D3 2,000 unit PO DAILY 09/13/21 09/30/21 History Patient History Medical History Asthma Stable Benign essential hypertension Common migraine without aura Disc degeneration, lumbar DM type 2 (diabetes mellitus, type 2) NIDDM GERD (gastroesophageal reflux disease) controlled Gout Herniated intervertebral disc History of COVID-19 Dx 03/2020 covid pneumonia > hospitalized at [facility] and d/c on home oxygen > still wearing oxygen at night (was not on prior to covid) History of thrombophlebitis History of TMJ disorder Hypercholesterolemia Morbid obesity Osteoarthritis Sleep apnea BiPAP (compliant) + nighttime O2 Urinary incontinence Surgical History History of appendectomy History of cardiac cath approx 25 years ago - [place] - no stents History of carpal tunnel release of both wrists History of cataract surgery History of cholecystectomy History of colonoscopy History of esophagogastroduodenoscopy (EGD) History of hysterectomy History of oophorectomy History of rectal surgery closure of anal fistula with rectal advancement flap History of shoulder surgery History of tubal ligation Family History Mother Congestive heart failure Myocardial infarction Cancer Father Septicemia Persistent sinus bradycardia Sick sinus syndrome Slow to wake up after anesthesia Sister Hypothyroidism Daughter Esophageal cancer Daughter COPD (chronic obstructive pulmonary disease) Denies family history of Ovarian cancer Prostate cancer Breast cancer Lung cancer Colorectal cancer Social History Smoking Status: Never smoker Second Hand Exposure: Yes ( smoked); Do You Dip or Chew Tobacco: No; Hx Alcohol Use: Yes Alcohol type: wine Hx Substance Use: No Preferred Language: Urdu Communication Ability: Effective Visual Impairment: Partially Limited Hearing Ability: Normal Tipple Tender Required: No Beliefs That Will Affect Care: None marital status: / Current Living Situation: Alone current occupational status: retired How many Children do You have: 3 Feels Safe at Home: Yes Safety Concerns: Feels Safe At This Time Childhood Exposure to Second-Hand Smoke: Yes Diet Comment: limits carbs/sweets and salts caffeine: No during the past year weight has: remained stable Dental Care, Regularly: No Physical Activity Frequency: Does not Exercise Seatbelt Use: sometimes Sunscreen Use: No Assistive Devices: Cane, Oxygen - Continuous and Walker Assistive Devices Comment: oxygen at night Review of Systems Review of Systems: All systems reviewed & are unremarkable except as noted in HPI & below Physical Exam Physical Exam: General: WN, WN obese female sitting in bed eating lunch, NAD HEENT; head normocephalic, atraumatic, mm slightly dry, trachea midline, no deviation Resp: CTAB, faint end expiratory wheeze anterior L chest, no crackles, on 3L NC post-operatively able to talk in complete sentences, no cough CV: bradycardic (rate 52bpm), regular, no m/r/g, no calf tenderness, pulses palpable GI: +BS, soft, non-tender MSK/Neuro: L knee with dressing in place/martinez wrap (not removed), pulses palpable, toes wiggle, strength intact and equal for dorsiflexion/plantar flexion Skin: warm, dry Pscyh: AOx3, pleasant and cooperative Results & Data Results & Data ([facility]) Vital Signs (Past 12 Hours) Vital Signs Temp Pulse Pulse Resp BP Pulse Ox 09/30/21 11:56 36.4 C L 53 L 16 113/59 L 98 09/30/21 11:20 36.6 C 61 16 115/64 91 09/30/21 11:10 51 L 20 112/52 L 94 09/30/21 11:00 49 L 19 101/50 L 94 09/30/21 10:50 36.1 C L 51 L 18 121/53 L 94 09/30/21 10:40 56 L 14 125/62 96 09/30/21 10:30 58 L 13 142/66 H 98 09/30/21 10:20 65 14 139/66 99 09/30/21 10:11 36.6 C 60 14 135/57 L 93 09/30/21 06:00 36.8 C 61 20 150/72 H 94 Laboratory Results 09/30/21 09/30/21 09/30/21 Range/Units 12:02 10:13 05:58 POC Glucose 127 H 120 H 140 H (70-99) mg/dl SARS-CoV-2, RNA, NAAT (NEGATIVE) 09/30/21 Range/Units 05:45 POC Glucose (70-99) mg/dl SARS-CoV-2, RNA, NAAT NEGATIVE (NEGATIVE) Diagnostic Findings Knee X-Ray 09/30/21 10:18 TWO VIEWS LEFT KNEE CLINICAL HISTORY: Postoperative examination. FINDINGS: AP and crosstable lateral portable views of the left knee are obtained. A left knee arthroplasty is in near anatomic alignment. There has been undersurface remodeling of the patella. No acute fracture is seen. There are expected postoperative changes around the knee including skin clips, a surgical drain, soft tissue edema, and subcutaneous gas. IMPRESSION: Expected postoperative changes status post left knee arthroplasty. No acute fracture is seen. ACT 112: Negative or not required by law. Electronically signed by: Isaias Hobson M.D. 09/30/2021 11:44 AM PG Care Time/CCT Total # of Minutes Spent Total Time Spent with Patient: Total time spent is greater than 50% in coordination of care (as documented) at patient's floor/unit and/or counseling patient: Coding Level of Care Code 73983 Inpt Consult Level 3 Diagnoses Primary osteoarthritis of left knee M17.12 Diabetes mellitus E11.9 Asthma J45.909 Obstructive sleep apnea G47.33 Gastroesophageal reflux disease without esophagitis K21.9 HTN (hypertension) I10
[2021-09-30] MEDS ORDERED: dilTIAZem HCL 300 MG CAPCR PO SCH (12:30)
[2021-09-30] MEDS: INSULIN ASPART PER UNIT SC SCH ×3 (12:54→21:06)
[2021-09-30] MEDS: SODIUM CHLORIDE 0.9% 1000ML 1,000 ML IV SCH ×2 (12:55→22:13)
[2021-09-30] MEDS: FLUTICASONE/VILANTEROL 200/25MCG 14 PUFFS/INHALER INH SCH (13:36)
[2021-09-30] MEDS: ACETAMINOPHEN 500 MG TAB PO SCH ×2 (14:42→22:11)
[2021-09-30] MEDS ORDERED: VANCOMYCIN HCL 1,500 MG in SODIUM CHLORIDE 0.9% 250 ML IV SCH (20:30)
[2021-09-30] MEDS: DOCUSATE SODIUM 100 MG CAP PO SCH (20:36)
[2021-09-30] MEDS: SENNA 8.6 MG TAB PO SCH (20:36)
[2021-09-30] MEDS: MONTELUKAST SODIUM 10 MG TABLET PO SCH (20:51)
[2021-09-30] MEDS: dilTIAZem HCL 300 MG CAPCR PO SCH (22:06)
[2021-09-30] MEDS: CETIRIZINE HCL 10 MG TABLET PO SCH (22:06)
[2021-10-01] MEDS: ACETAMINOPHEN 500 MG TAB PO SCH ×3 (05:02→22:23)
[2021-10-01 07:13] LABS: Hematocrit (blood only) 37.1 % (37-47); Hemoglobin 12.3 g/dL (12.0-16.0); Mean Corpuscular Hemoglobin 31.7 pg (25-34); Mean Corpuscular Hgb Conc 33.2 g/dL (32-36); Mean Corpuscular Volume 95.6 fL (80-100); Mean Platelet Volume 10.6 fL (7.4-10.4); Platelet Count 135 K/uL (130-400); RDW Coefficient of Variation 13.1 % (11.5-14.5); RDW Standard Deviation 45.2 fL (36.4-46.3); Red Blood Count 3.88 M/uL (4.2-5.4); White Blood Count 7.94 K/uL (4.8-10.8)
[2021-10-01 07:27] LABS: BUN Creatinine Ratio 20.4 (10-20); Calcium 8.1 mg/dl (8.5-10.1); Creatinine Clr Calc Pharmacy 48.7 ml/min; Est GFR (African American) 55.8 ml/min; Est GFR (Non-African American) 48.1 ml/min; Potassium 4.4 mmol/L (3.5-5.1)
--- NOTE | 2021-10-01 08:06 | Orthopedic Progress Note ---
Date of Service October 01, 2021 Assessment & Plan (1) Primary osteoarthritis of left knee: Plan: Postop day 1 status post left total knee arthroplasty. PT/OT protocols. Weightbearing as tolerated. DVT prophylaxis-rivaroxaban p.o. daily, SCDs, SEVERINO miller. Pain management as written. DC planning-patient is planning for the possibility of rehab versus long-term facility. Case management to discuss with her today. Admission and Anticipated Discharge Date Admission Date: September 30, 2021 Subjective Postop day 1 Patient is sitting in her chair at the bedside. She states she had some mild pain early in the morning however she is taken Tylenol and it seems to be helping. Pain is controlled at this time. She states she has some mild sh ortness of breath which is her normal state. She has not noticed any increase in her shortness of breath. Latest O2 sat was 91 on room air. She denies any chest pain, or lightheadedness. Patient discussed that she lives alone at home and is hoping to go to a skilled facility if possible. Physical Exam Physical Exam: Dressings are clean, dry, and intact. Calves are soft nontender. Neurovascular is intact. Toes are mobile. She has good dorsiflexion and plantarflexion of the left foot. Hemovac drainage was 120 mL this morning from the previous shift. Results & Data ([facility]) Vital Signs (Past 12 Hours) Vital Signs Temp Pulse Pulse Resp BP BP Pulse Ox 10/01/21 07:12 36.8 C 50 L 16 107/65 91 10/01/21 04:00 36.6 C 50 L 15 110/58 L 95 09/30/21 23:54 36.7 C 53 L 16 116/61 98 Laboratory Results Laboratory Results WBC 7.94 K/uL (4.8-10.8) 10/01/21 06:36 RBC 3.88 M/uL (4.2-5.4) L 10/01/21 06:36 Hgb 12.3 g/dL (12.0-16.0) 10/01/21 06:36 Hct 37.1 % (37-47) 10/01/21 06:36 MCV 95.6 fL (80-100) 10/01/21 06:36 MCH 31.7 pg (25-34) 10/01/21 06:36 MCHC 33.2 g/dL (32-36) 10/01/21 06:36 RDW Std Deviation 45.2 fL (36.4-46.3) 10/01/21 06:36 RDW Coeff of Gonzalez 13.1 % (11.5-14.5) 10/01/21 06:36 Plt Count 135 K/uL (130-400) 10/01/21 06:36 MPV 10.6 fL (7.4-10.4) H 10/01/21 06:36 Sodium 138 mmol/L (136-145) 10/01/21 06:36 Potassium 4.4 mmol/L (3.5-5.1) 10/01/21 06:36 Chloride 108 mmol/L (98-107) H 10/01/21 06:36 Carbon Dioxide 28 mmol/L (21-32) 10/01/21 06:36 Anion Gap 2 (3-11) L 10/01/21 06:36 BUN 22 mg/dl (6-23) 10/01/21 06:36 Creatinine 1.08 mg/dl (0.6-1.2) 10/01/21 06:36 Est Cr Clr Drug Dosing 48.7 ml/min 10/01/21 06:36 Est GFR ( Amer) 55.8 ml/min 10/01/21 06:36 Est GFR (Non-Af Amer) 48.1 ml/min 10/01/21 06:36 BUN/Creatinine Ratio 20.4 (10-20) H 10/01/21 06:36 Glucose 124 mg/dl (70-99(Fasting)) H 10/01/21 06:36 POC Glucose 130 mg/dl (70-99) H 09/30/21 20:44 Calcium 8.1 mg/dl (8.5-10.1) L 10/01/21 06:36 Magnesium 2.0 mg/dl (1.7-2.4) 10/01/21 06:36 SARS-CoV-2, RNA, NAAT NEGATIVE (NEGATIVE) 09/30/21 05:45 Impressions Knee X-Ray 09/30/21 10:18 TWO VIEWS LEFT KNEE CLINICAL HISTORY: Postoperative examination. FINDINGS: AP and crosstable lateral portable views of the left knee are obtained. A left knee arthroplasty is in near anatomic alignment. There has been undersurface remodeling of the patella. No acute fracture is seen. There are expected postoperative changes around the knee including skin clips, a surgical drain, soft tissue edema, and subcutaneous gas. IMPRESSION: Expected postoperative changes status post left knee arthroplasty. No acute fracture is seen. ACT 112: Negative or not required by law. Electronically signed by: Isaias Hobson M.D. 09/30/2021 11:44 AM
--- NOTE | 2021-10-01 08:38 | Hospitalist Progress Note ---
Date of Service October 01, 2021 Assessment & Plan (1) Primary osteoarthritis of left knee: Plan: POD# 1 s/p Left Total Knee Arthroplasty(Left) - Tray South MD. EBL 5cc Pain management/bowel regimen per primary service DVT prophylaxis per primary service - Xarelto (hx phlebitis, but no DVT/PE per patient) H/h 15/45 --> 12.3/37, acute blood loss anemia from surgery/dilutional from IVF Patient hopeful for skilled facility vs rehab --> pending PT/OT evaluations today (2) Diabetes mellitus: Plan: A1c 6.0 on most recent check, on metformin 500mg daily which will be held during inpatient stay BSG Ac/HS, SSI while inpatient steroids from surgery -- BSGs acceptable Primary service resumed home metformin (3) Asthma: Plan: continue home medications -- montelukast 10mg, cetirizine 10mg, fluticasone, albuterol as needed --> 91% on RA. No sob above her usual state --> Discussed albuterol HFA available if needed. --> resumed home advair as not ordered yesterday (4) Obstructive sleep apnea: Plan: continue BiPAP HS and napping -- wears O2 with BiPAP, was not on O2 prior to previous COVID infection in 2019 --> did not bring her home machine, order placed to utilize last evening Did not use, encouraged use tonight (5) Gastroesophageal reflux disease without esophagitis: Plan: on omeprazole 20mg SEARCH MARKETING COORDINATOR, protonix ordered while inpatient (6) HTN (hypertension): Plan: BP stable -- continues on cardizem 300mg daily, lasix 20mg (can hold lasix until eval in am/cr evaluated as she states she takes this only 3x/week as needed for blood pressure) Monitor Holding given borderline low BPs, but asymptomatic Plan: Thank you for allowing hospitalist group to participate in the care of Ms. Jett. Hospitalist service will chart check in am, but officially sign off. Please call with any questions/concerns. Admission and Anticipated Discharge Date Admission Date: September 30, 2021 Supervising Physician Co-Signing Physician Notes PA Supervision Note: I did not personally see or examine the patient today, but I verified all arrieta points of TERESO Flowers's assessment and plan with the following exceptions/additions: None Subjective Patient evaluated this morning. Doing well. Some pain to the lateral aspect of her knee at site of drain, and some tightness above the JUAN DAVID wrap, improving. Working with therapy. Would benefit from rehab vs skilled given she lives alone. Baseline shortness of breath without wheezing -- she did use her albuterol HFA last evening. Of note, does not have her advair inhaler. She typically takes 2 puffs in morning and 2 at night and when without for a day she does state she gets wheezy but not symptomatic. \\Will order to start now. Some shortness of breath with ambulation secondary to pain with walking with one leg and "one arm" due to arthritis. No fever, chills, chest pain, cough, sputum production, abdominal pain, nausea or vomiting. Questions/concerns addressed at this time. Review of Systems Review of Systems: All systems reviewed & are unremarkable except as noted in HPI & below Physical Exam Physical Exam: General: WN, WN obese female walking back from the bathroom, NAD HEENT; head normocephalic, atraumatic, mmm, trachea midline, no deviation Resp: CTAB, no w/c/r, 91% on RA, no cough, able to talk in complete sentences CV: bradycardic (rate 52bpm), regular, no m/r/g, no calf tenderness, pulses palpable GI: +BS, soft, non-tender MSK/Neuro: L knee with dressing in place/juan david wrap (not removed), pulses pa lpable, toes wiggle, strength intact and equal for dorsiflexion/plantar flexion, Hemovac with bloody drainage, NVI Skin: warm, dry Pscyh: AOx3, pleasant and cooperative Results & Data Results & Data ([facility]) Vital Signs (Past 12 Hours) Vital Signs Temp Pulse Pulse Resp BP BP Pulse Ox 10/01/21 07:12 36.8 C 50 L 16 107/65 91 10/01/21 04:00 36.6 C 50 L 15 110/58 L 95 09/30/21 23:54 36.7 C 53 L 16 116/61 98 Laboratory Results 10/01/21 10/01/21 10/01/21 Range/Units 08:10 06:36 06:36 WBC 7.94 (4.8-10.8) K/uL RBC 3.88 L (4.2-5.4) M/uL Hgb 12.3 (12.0-16.0) g/dL Hct 37.1 (37-47) % MCV 95.6 (80-100) fL MCH 31.7 (25-34) pg MCHC 33.2 (32-36) g/dL RDW Std Deviation 45.2 (36.4-46.3) fL RDW Coeff of Gonzalez 13.1 (11.5-14.5) % Plt Count 135 (130-400) K/uL MPV 10.6 H (7.4-10.4) fL Sodium 138 (136-145) mmol/L Potassium 4.4 (3.5-5.1) mmol/L Chloride 108 H (98-107) mmol/L Carbon Dioxide 28 (21-32) mmol/L Anion Gap 2 L (3-11) BUN 22 (6-23) mg/dl Creatinine 1.08 (0.6-1.2) mg/dl Est Cr Clr Drug Dosing 48.7 ml/min Est GFR ( Amer) 55.8 ml/min Est GFR (Non-Af Amer) 48.1 ml/min BUN/Creatinine Ratio 20.4 H (10-20) Glucose 124 H (70-99(Fasting)) mg/dl POC Glucose 122 H (70-99) mg/dl Calcium 8.1 L (8.5-10.1) mg/dl Magnesium 2.0 (1.7-2.4) mg/dl 09/30/21 09/30/21 09/30/21 Range/Units 20:44 16:58 12:02 WBC (4.8-10.8) K/uL RBC (4.2-5.4) M/uL Hgb (12.0-16.0) g/dL Hct (37-47) % MCV (80-100) fL MCH (25-34) pg MCHC (32-36) g/dL RDW Std Deviation (36.4-46.3) fL RDW Coeff of Gonzalez (11.5-14.5) % Plt Count (130-400) K/uL MPV (7.4-10.4) fL Sodium (136-145) mmol/L Potassium (3.5-5.1) mmol/L Chloride (98-107) mmol/L Carbon Dioxide (21-32) mmol/L Anion Gap (3-11) BUN (6-23) mg/dl Creatinine (0.6-1.2) mg/dl Est Cr Clr Drug Dosing ml/min Est GFR ( Amer) ml/min Est GFR (Non-Af Amer) ml/min BUN/Creatinine Ratio (10-20) Glucose (70-99(Fasting)) mg/dl POC Glucose 130 H 124 H 127 H (70-99) mg/dl Calcium (8.5-10.1) mg/dl Magnesium (1.7-2.4) mg/dl 09/30/21 Range/Units 10:13 WBC (4.8-10.8) K/uL RBC (4.2-5.4) M/uL Hgb (12.0-16.0) g/dL Hct (37-47) % MCV (80-100) fL MCH (25-34) pg MCHC (32-36) g/dL RDW Std Deviation (36.4-46.3) fL RDW Coeff of Gonzalez (11.5-14.5) % Plt Count (130-400) K/uL MPV (7.4-10.4) fL Sodium (136-145) mmol/L Potassium (3.5-5.1) mmol/L Chloride (98-107) mmol/L Carbon Dioxide (21-32) mmol/L Anion Gap (3-11) BUN (6-23) mg/dl Creatinine (0.6-1.2) mg/dl Est Cr Clr Drug Dosing ml/min Est GFR ( Amer) ml/min Est GFR (Non-Af Amer) ml/min BUN/Creatinine Ratio (10-20) Glucose (70-99(Fasting)) mg/dl POC Glucose 120 H (70-99) mg/dl Calcium (8.5-10.1) mg/dl Magnesium (1.7-2.4) mg/dl Diagnostic Findings Knee X-Ray 09/30/21 10:18 TWO VIEWS LEFT KNEE CLINICAL HISTORY: Postoperative examination. FINDINGS: AP and crosstable lateral portable views of the left knee are obtained. A left knee arthroplasty is in near anatomic alignment. There has been undersurface remodeling of the patella. No acute fracture is seen. There are expected postoperative changes around the knee including skin clips, a surgical drain, soft tissue edema, and subcutaneous gas. IMPRESSION: Expected postoperative changes status post left knee arthroplasty. No acute fracture is seen. ACT 112: Negative or not required by law. Electronically signed by: Isaias Hobson M.D. 09/30/2021 11:44 AM PG Care Time/CCT Total # of Minutes Spent Total Time Spent with Patient: Total time spent is greater than 50% in coordination of care (as documented) at patient's floor/unit and/or counseling patient: Coding Level of Care Code 51549 Subseq Hosp Care Lvl 2 Diagnoses Primary osteoarthritis of left knee M17.12 Diabetes mellitus E11.9 Asthma J45.909 Obstructive sleep apnea G47.33 Gastroesophageal reflux disease without esophagitis K21.9 HTN (hypertension) I10
[2021-10-01] MEDS: INSULIN ASPART PER UNIT SC SCH ×4 (08:47→21:18)
[2021-10-01] MEDS ORDERED: POTASSIUM CHLORIDE 10 MEQ TABCR PO SCH (09:00)
[2021-10-01] MEDS ORDERED: FUROSEMIDE 20 MG TAB PO SCH (09:00)
[2021-10-01] MEDS: metFORMIN HCL ER 500 MG TABCR PO SCH (09:53)
[2021-10-01] MEDS: RIVAROXABAN 10 MG TABLET PO SCH (09:54)
[2021-10-01] MEDS: CHOLECALCIFEROL 1,000 UNITS 25 MCG TAB PO SCH (09:54)
[2021-10-01] MEDS: MULTIVITAMIN TAB PO SCH (09:54)
[2021-10-01] MEDS: oxyCODONE HCL IR 5 MG TAB (IMMEDIATE RELEASE) PO PRN ×3 (09:55→20:24)
[2021-10-01] MEDS: FLUTICASONE/VILANTEROL 200/25MCG 14 PUFFS/INHALER INH SCH ×2 (09:58)
[2021-10-01] MEDS: DOCUSATE SODIUM 100 MG CAP PO SCH ×2 (09:58→20:24)
[2021-10-01] MEDS: PANTOprazole 40 MG TAB PO SCH (09:58)
[2021-10-01] MEDS ORDERED: FUROSEMIDE 20 MG TAB PO ONE (18:00)
[2021-10-01] MEDS ORDERED: Nursing to Pharmacy Communication SCH (19:30)
[2021-10-01] MEDS: CETIRIZINE HCL 10 MG TABLET PO SCH (20:24)
[2021-10-01] MEDS: MONTELUKAST SODIUM 10 MG TABLET PO SCH (20:24)
[2021-10-01] MEDS: SENNA 8.6 MG TAB PO SCH (20:24)
[2021-10-01] MEDS: dilTIAZem HCL 300 MG CAPCR PO SCH (20:24)
[2021-10-01] MEDS ORDERED: CETIRIZINE HCL 10 MG TABLET PO SCH (21:00)
[2021-10-02] MEDS: oxyCODONE HCL IR 5 MG TAB (IMMEDIATE RELEASE) PO PRN ×3 (00:32→14:21)
[2021-10-02] MEDS: ACETAMINOPHEN 500 MG TAB PO SCH ×2 (05:12→14:21)
--- NOTE | 2021-10-02 07:25 | Orthopedic Progress Note ---
Date of Service October 02, 2021 Assessment & Plan (1) Primary osteoarthritis of left knee: Plan: Postop day 2 status post left total knee arthroplasty. PT/OT protocols. Weightbearing as tolerated. DVT prophylaxis-rivaroxaban p.o. daily, SCDs, SEVERINO miller. Pain management as written. DC planning-patient is planning on [facility]. Patient is stable for discharge pending insurance auth. Her daughter will transport her. Plan on discharge today Admission and Anticipated Discharge Date Admission Date: September 30, 2021 Subjective Patient is POD#2 left total knee. She is doing well. She is having some increased pain today compared to yesterday but is controlled with ordered pain medication. No other complaints. Denies chest pain, sob, dizziness, fever, chills, n/v/d. Review of Systems Review of Systems: All systems reviewed & are unremarkable except as noted in Subjective Physical Exam Physical Exam: Left knee: Dressing is c/d/i. Peter and hemovac intact. Toes mobile with good dorsiflexion. No calf tenderness. Distally n/v status and sensation intact. Constitutional: well developed and well nourished; no acute distress Results & Data ([facility]) Vital Signs (Past 12 Hours) Vital Signs Temp Pulse Resp BP Pulse Ox 10/02/21 07:21 36.8 C 55 L 16 134/62 90 10/01/21 22:40 37.0 C 62 18 145/74 H 93
[2021-10-02] MEDS ORDERED: FUROSEMIDE 20 MG TAB PO SCH (09:00)
[2021-10-02] MEDS ORDERED: POTASSIUM CHLORIDE 10 MEQ TABCR PO SCH (09:00)
[2021-10-02] MEDS: INSULIN ASPART PER UNIT SC SCH ×2 (09:07→12:28)
[2021-10-02] MEDS: metFORMIN HCL ER 500 MG TABCR PO SCH (09:13)
[2021-10-02] MEDS: RIVAROXABAN 10 MG TABLET PO SCH (09:14)
[2021-10-02] MEDS: PANTOprazole 40 MG TAB PO SCH (09:14)
[2021-10-02] MEDS: CHOLECALCIFEROL 1,000 UNITS 25 MCG TAB PO SCH (09:14)
[2021-10-02] MEDS: MULTIVITAMIN TAB PO SCH (09:14)
[2021-10-02] MEDS: DOCUSATE SODIUM 100 MG CAP PO SCH (09:14)
[2021-10-02] MEDS: FLUTICASONE/VILANTEROL 200/25MCG 14 PUFFS/INHALER INH SCH ×2 (09:15)
--- NOTE | 2021-10-03 07:53 | Discharge Summary ---
Date of Service October 03, 2021 Admission HPI Per Admitting Provider 81-year-old female with past medical history significant for asthma, ERIN, diabetes mellitus type 2, GERD who presents with ongoing left knee pain. Patient has failed conservative measures. Pain is interfering with daily activities. Patient would like to proceed with surgical intervention. Patient denies headaches, sweats, fevers, chills, double vision, blurred vision, cough, sore throat, dysphagia, chest pain, sob, wheezing, n/v/d/c, numbness, tingling, fatigue, urinary symptoms, mood disorders. ROS positive for left knee pain and stiffness. Admission Exam Per Admitting Provider Constitutional: well developed and well nourished; no acute distress Eyes: PERRL, conjunctivae normal, anicteric sclerae ENMT: external ear and nose normal, oropharynx normal Neck: trachea midline, no thyromegaly Respiratory: normal respiratory effort, lungs clear to auscultation Cardiovascular: RRR, no murmur, no edema Musculoskeletal: Left knee: Varus alignment. Mild effusion. Tenderness medial joint line. Mild crepitation. There is painful range of motion. Range of motion is 5 to 110 degrees. Stable to valgus and varus stress test. Skin: no rashes, warm and dry Neurologic: patellar DTR's 2+ bilat, sensation intact Psychiatric: A+Ox3, euthymic affect Principal Diagnosis Left knee osteoarthritis Discharge Exam Left knee: Dressing is c/d/i. Peter and hemovac intact. Toes mobile with good dorsiflexion. No calf tenderness. Distally n/v status and sensation intact. Constitutional well developed and well nourished; no acute distress Discharge Data Allergies Allergy/AdvReac Type Severity Reaction Status Date / Time Penicillins Allergy Intermediate Hives Verified 09/30/21 05:47 hydrochlorothiazide AdvReac Unknown Cough Verified 09/30/21 05:47 lisinopril AdvReac Unknown Cough Verified 09/30/21 05:48 Consultations 09/26/21 10:40 Consult Hospitalist Routine Procedures Performed Operation Date: 09/30/21 07:15 Actual Procedures p Left Total Knee Arthroplasty(Left) - Tray South MD Ordered Studies 09/30/21 05:00 US - OR guided needle placemen Stat Hospital Course (1) Primary osteoarthritis of left knee: Patient presented for same day admission following left TKA on 09/30/21. She tolerated procedure well. The Patient had an uneventful hospital course. Post-operatively, her activity was progressed and well tolerated. They participated in PT with ambulation distance of 95 feet. ROM of operative knee reached 75 degrees. Labs remained stable. Dr. Caleb Fernando of [facility] was consulted for medical management during admission. Pain controlled on oral medications. Please refer to daily progress notes and PT notes for complete details. After exam on 10/02/21, patient was felt to be stable for discharge to [facility]. Patient will f/u in the office in about 2 weeks for further evaluation including x-rays and incision check, sooner if having any issues or concerns. Postop day 2 status post left total knee arthroplasty. PT/OT protocols. Weightbearing as tolerated. DVT prophylaxis-rivaroxaban p.o. daily, SCDs, SEVERINO miller. Pain management as written. DC planning-patient is planning on [facility]. Patient is stable for discharge pending insurance auth. Her daughter will transport her. Plan on discharge today Lab Results 09/30/21 09/30/21 09/30/21 Range/Units 05:45 05:58 10:13 WBC (4.8-10.8) K/uL RBC (4.2-5.4) M/uL Hgb (12.0-16.0) g/dL Hct (37-47) % MCV (80-100) fL MCH (25-34) pg MCHC (32-36) g/dL RDW Std Deviation (36.4-46.3) fL RDW Coeff of Gonzalez (11.5-14.5) % Plt Count (130-400) K/uL MPV (7.4-10.4) fL Sodium (136-145) mmol/L Potassium (3.5-5.1) mmol/L Chloride (98-107) mmol/L Carbon Dioxide (21-32) mmol/L Anion Gap (3-11) BUN (6-23) mg/dl Creatinine (0.6-1.2) mg/dl Est Cr Clr Drug Dosing ml/min Est GFR ( Amer) ml/min Est GFR (Non-Af Amer) ml/min BUN/Creatinine Ratio (10-20) Glucose (70-99(Fasting)) mg/dl POC Glucose 140 H 120 H (70-99) mg/dl Calcium (8.5-10.1) mg/dl Magnesium (1.7-2.4) mg/dl SARS-CoV-2, RNA, NAAT NEGATIVE (NEGATIVE) 09/30/21 09/30/21 09/30/21 Range/Units 12:02 16:58 20:44 WBC (4.8-10.8) K/uL RBC (4.2-5.4) M/uL Hgb (12.0-16.0) g/dL Hct (37-47) % MCV (80-100) fL MCH (25-34) pg MCHC (32-36) g/dL RDW Std Deviation (36.4-46.3) fL RDW Coeff of Gonzalez (11.5-14.5) % Plt Count (130-400) K/uL MPV (7.4-10.4) fL Sodium (136-145) mmol/L Potassium (3.5-5.1) mmol/L Chloride (98-107) mmol/L Carbon Dioxide (21-32) mmol/L Anion Gap (3-11) BUN (6-23) mg/dl Creatinine (0.6-1.2) mg/dl Est Cr Clr Drug Dosing ml/min Est GFR ( Amer) ml/min Est GFR (Non-Af Amer) ml/min BUN/Creatinine Ratio (10-20) Glucose (70-99(Fasting)) mg/dl POC Glucose 127 H 124 H 130 H (70-99) mg/dl Calcium (8.5-10.1) mg/dl Magnesium (1.7-2.4) mg/dl SARS-CoV-2, RNA, NAAT (NEGATIVE) 10/01/21 10/01/21 10/01/21 Range/Units 06:36 06:36 08:10 WBC 7.94 (4.8-10.8) K/uL RBC 3.88 L (4.2-5.4) M/uL Hgb 12.3 (12.0-16.0) g/dL Hct 37.1 (37-47) % MCV 95.6 (80-100) fL MCH 31.7 (25-34) pg MCHC 33.2 (32-36) g/dL RDW Std Deviation 45.2 (36.4-46.3) fL RDW Coeff of Gonzalez 13.1 (11.5-14.5) % Plt Count 135 (130-400) K/uL MPV 10.6 H (7.4-10.4) fL Sodium 138 (136-145) mmol/L Potassium 4.4 (3.5-5.1) mmol/L Chloride 108 H (98-107) mmol/L Carbon Dioxide 28 (21-32) mmol/L Anion Gap 2 L (3-11) BUN 22 (6-23) mg/dl Creatinine 1.08 (0.6-1.2) mg/dl Est Cr Clr Drug Dosing 48.7 ml/min Est GFR ( Amer) 55.8 ml/min Est GFR (Non-Af Amer) 48.1 ml/min BUN/Creatinine Ratio 20.4 H (10-20) Glucose 124 H (70-99(Fasting)) mg/dl POC Glucose 122 H (70-99) mg/dl Calcium 8.1 L (8.5-10.1) mg/dl Magnesium 2.0 (1.7-2.4) mg/dl SARS-CoV-2, RNA, NAAT (NEGATIVE) 10/01/21 10/01/21 10/01/21 Range/Units 12:03 17:09 20:40 WBC (4.8-10.8) K/uL RBC (4.2-5.4) M/uL Hgb (12.0-16.0) g/dL Hct (37-47) % MCV (80-100) fL MCH (25-34) pg MCHC (32-36) g/dL RDW Std Deviation (36.4-46.3) fL RDW Coeff of Gonzalez (11.5-14.5) % Plt Count (130-400) K/uL MPV (7.4-10.4) fL Sodium (136-145) mmol/L Potassium (3.5-5.1) mmol/L Chloride (98-107) mmol/L Carbon Dioxide (21-32) mmol/L Anion Gap (3-11) BUN (6-23) mg/dl Creatinine (0.6-1.2) mg/dl Est Cr Clr Drug Dosing ml/min Est GFR ( Amer) ml/min Est GFR (Non-Af Amer) ml/min BUN/Creatinine Ratio (10-20) Glucose (70-99(Fasting)) mg/dl POC Glucose 110 H 116 H 134 H (70-99) mg/dl Calcium (8.5-10.1) mg/dl Magnesium (1.7-2.4) mg/dl SARS-CoV-2, RNA, NAAT (NEGATIVE) 10/02/21 10/02/21 10/02/21 Range/Units 08:03 09:20 12:02 WBC (4.8-10.8) K/uL RBC (4.2-5.4) M/uL Hgb (12.0-16.0) g/dL Hct (37-47) % MCV (80-100) fL MCH (25-34) pg MCHC (32-36) g/dL RDW Std Deviation (36.4-46.3) fL RDW Coeff of Gonzalez (11.5-14.5) % Plt Count (130-400) K/uL MPV (7.4-10.4) fL Sodium (136-145) mmol/L Potassium (3.5-5.1) mmol/L Chloride (98-107) mmol/L Carbon Dioxide (21-32) mmol/L Anion Gap (3-11) BUN (6-23) mg/dl Creatinine (0.6-1.2) mg/dl Est Cr Clr Drug Dosing ml/min Est GFR ( Amer) ml/min Est GFR (Non-Af Amer) ml/min BUN/Creatinine Ratio (10-20) Glucose (70-99(Fasting)) mg/dl POC Glucose 121 H 121 H (70-99) mg/dl Calcium (8.5-10.1) mg/dl Magnesium (1.7-2.4) mg/dl SARS-CoV-2, RNA, NAAT NEGATIVE (NEGATIVE) Total Time Total Time Spent Total Time Spent (In Minutes): 20 Discharge Plan Discharge Items Patient Disposition: Transfer Inpatient Rehab Fac Reason For Visit: Left Knee Osteoarthritis Discharge Diagnosis: Left knee osteoarthritis Activity: Per Instructions section Weightbearing: Left weightbearing Weightbearing Comment: As tolerated with walker Non-emergency contact: Surgeon Call non-emergency contact if: you have any medication questions, your pain is not controlled, your pain is concerning for you, you have a fever, your temperature is above 101, your wound has increased redness and your wound has increased drainage Follow-up/Referrals: Filiberto Joseph MD [Primary Care Provider] - Tray South MD [Surgeon] - (Follow-up in 14 days from the day of surgery for your first postoperative wound check) Diet: Regular Addtl Attending Provider Instructions: ACTIVITY RECOMMENDATIONS: SELF CARE INSTRUCTIONS AFTER TOTAL KNEE REPLACEMENT A. You may need to continue a physical therapy program after discharge from the hospital. There are several options available to you. Your doctor will assist you in selecting the best one for you. 1. An out-patient facility 2 to 3 times a week for therapy or home therapy. 2. Continue working on all exercises taught to you in the hospital. Your goals should be to increase bending of your knee to 90 degrees and beyond and to fully straighten your knee. B. You may progress at your own pace from walking with a walker or crutches to a cane; then to no assistive devices. C. Make walking a part of your daily routine. Be up as much as comfortable with rest periods throughout the day. Rest with leg elevation is very important. Use the ice wrap frequently for the first 3-4 weeks. D. There are no restrictions on activities. You may ride in a car, shop, participate in carpenter bridge and all social activities. E. Wear the long elastic stockings (SEVERINO hose) 20 hours a day for 2 weeks after surgery. They can be removed several times a day for laundering and for a bath. F. You may shower, no tub baths until cleared by your doctor. SPECIAL CARE INSTRUCTIONS: VERY IMPORTANT TO READ AND REVIEW A. There are a few signs you need to watch for after you are home. Call [facility] if you notice any of the followin. Increased severe knee pain. Some pain is expected especially when you exercise. 2. Increased swelling in your leg or knee; pain or swelling of the calf muscle in either lower leg. 3. Any fluid drainage from the incision. 4. Shortness of breath or chest pain. B. Please call [facility] at if you have any concerns or questions about your operation or recovery. The doctor or his nurse will return your call promptly. C. You must take antibiotics before dental work, bladder, bowel or other surgery. Your doctor will provide you with a permanent care to carry describing this precaution. IMPORTANT: * Xarelto 10mg daily as your blood thinner. Once you are finished the Xarelto you may resume your home aspirin. * CALL IF INCREASED PAIN, REDNESS, DRAINAGE OR FEVER GREATER THAT 101. * WEAR SEVERINO HOSE 20 HOURS PER DAY FOR 2 WEEKS. * This is a large suction dressing covering your incision. This will help pull any excess drainage from the wound and allow your incision to heal properly. You may shower with this if you can keep the unit outside of the shower. If any bleeding or leakage is noted please call your doctor's office. This will remain on your incision for 7 days and then should be removed. This can be done yourself or by the home nursing staff if applicable. The entire unit is disposable once removed. Once removed, keep incision clean and dry. If redness or drainage is noted, please call your surgeon. . IF INCISION IS LEAKING THROUGH DRESSING, CALL THE OFFICE . FOLLOW UP VISIT: If appointment is not already scheduled: Please call [facility] to make a follow-up appointment for 2 weeks after your surgery at . Pending Studies at Discharge: No Stand-Alone Forms: My [facility] Skilled Items Patient informed of condition?: Yes DNR: No Discharge Level of Care: Skilled Communicable Disease: No Discharge Prognosis: Improving Lines: None Urinary Catheter: No Medications and DC Order Prescriptions: New Xarelto 10 mg Tablet 10 mg PO DAILY Qty: 30 RF: 0 acetaminophen [Tylenol Extra Strength] 500 mg Tablet 1,000 mg PO Q8 Qty: 60 RF: 0 oxycodone 5 mg Tablet 5 - 10 mg PO .Q4h-6h MDD 6 PRN (Reason: pain) Qty: 30 RF: 0 Continued Oxygen Home Liters Per Minute See Rx Instructions .ROUTE .COMPLEX Qty: 1 RF: 0 albuterol sulfate 90 mcg/actuation HFA aerosol inhaler 2 puff INH Q4H PRN (Reason: shortness of breath or wheezing) Qty: 3 RF: 3 fluticasone propion-salmeterol 250-50 mcg/dose blister with device See Rx Instructions .ROUTE .COMPLEX Qty: 180 RF: 3 potassium chloride 8 mEq tablet extended release See Rx Instructions .ROUTE .COMPLEX Qty: 90 RF: 0 diltiazem HCl 300 mg capsule,extended release 24hr See Rx Instructions .ROUTE .COMPLEX Qty: 90 RF: 1 (DME) BiPap Supplies Misc See Rx Instructions .MEDSUPPLY Qty: 1 RF: 5 furosemide 20 mg tablet 20 mg PO .COMPLEX RF: 0 BiPap Machine Misc See Rx Instructions .ROUTE .COMPLEX Qty: 1 RF: 0 montelukast 10 mg tablet 10 mg PO QPM Qty: 90 RF: 3 cetirizine 10 mg tablet 10 mg PO HS RF: 0 omeprazole 20 mg capsule,delayed release(DR/EC) 20 mg PO QAM RF: 0 metformin 500 mg tablet extended release 24 hr 500 mg PO QAM RF: 0 Vitamin D3 2,000 unit PO DAILY RF: 0 Discontinued aspirin [Adult Low Dose Aspirin] 81 mg tablet,delayed release (DR/EC) 81 mg PO QAM RF: 0 acetaminophen [Tylenol] 325 mg Tablet 325 mg PO QID PRN (Reason: Pain) RF: 0 Discharge Orders: Discharge Order (Routine); Ordered 10/02/21 Ordered By: Agustin Knight/Other Patient Handouts: Oxycodone Oral Capsule 5 mg, Tips After Knee Surgery, Understanding Knee Replacement, Knee Replacement Recovery at Home Admission Data Admit Date/Time: 09/30/21 10:18 Attending Provider: Tray South Admit Provider: Tray South Primary Care Provider: Filiberto Joseph Other Providers: Darby Khan Other Interventions: Discharge Summary Assessment (RN) Last Done: 10/02/21 14:25
== END 2021-10-02 14:55 ==
LOC: ASU 05:23 → INTOOBSV 10:18 → 3E 10:18